=== PATIENT | male | born 1950 | race Caucasian/White ===

== ENCOUNTER 2016-12-02 22:58 | Inpatient (IN) | payer MEDICARE ==
[2016-12-02] MEDS ORDERED: FUROSEMIDE 40 MG/4 ML VIAL IVP ONE (23:24)
--- NOTE | 2016-12-02 23:28 | ED Physician Documentation ---
Chest Pain - HISTORIAN Historian: patient, other (grandchildren) - HPI Chief Complaint: Chest Pain Onset: other (patient cannot pin point time) Timing: still present Last known Well Date: 12/03/16 Last Known Well Time: 20:00 Context: rest Chest Pain Radiation: no radiation Chest Pain Signs/Symptoms: denies: nausea, vomiting Worsened By: nothing Relieved By: nothing Further Comments: yes (66 year old male patient presents with complaints of SOB and CP, patient is a very poor historian, old records reviewed. Unsure of last INR, states he has taken all of his medications. Is on 3L NC at home. Son states he put patient to bed, was called into his room and patient c/o chest pain and SOB.) - ROS CONST: recent illness (CHF admission in Nov 2016) - PAST HX [place] risk factors: hypertension, diabetes Type 2, hyperlipidemia, cardiac disease , angina, CHF, A-Fib Neuro deficit: CVA Surgeries/Procedures: other (craniotomy, right nephrectomy) Allergies/Adverse Reactions: Allergies Allergy/AdvReac Type Severity Reaction Status Date / Time Penicillins Allergy Intermediate Rash Verified 12/02/16 23:32 Home Medications: Ambulatory Orders Medication Instructions Recorded Acetaminophen with Codeine 1 tab PO Q6 PRN 11/15/16 [Tylenol with Codeine] Atorvastatin Calcium [Lipitor] 80 mg PO HS 11/15/16 Carvedilol [Coreg] 6.25 mg PO BS 11/15/16 Clopidogrel Bisulfate [Plavix] 75 mg PO QD 11/15/16 Furosemide [Lasix] 40 mg PO DAILY 11/15/16 Gabapentin [Neurontin] 300 mg PO TID 11/15/16 Hum Insulin NPH/Reg Insulin Hm 35 unit SQ BID 11/15/16 [Novolin 70-30 [place]] Ipratropium/Albuterol Sulfate 1 puff IH QID 11/15/16 [Duoneb] Isosorbide Mononitrate [Imdur] 30 mg PO DAILY 11/15/16 Nitroglycerin [Nitroquick] 0.4 mg SL Q5M PRN 11/15/16 Potassium Chloride [Klor-Con M20] 20 meq PO DAILY 11/15/16 Umeclidinium [place] [Incruse 62.5 mcg IH D 11/15/16 Ellipta] Warfarin Sodium [Coumadin] 7.5 mg PO 18 11/15/16 - SOCIAL HX Smoking History: quit greater than 1 year Alcohol Use: none Drug Use: none - FAMILY HX Family HX: denies: none - VITAL SIGNS Vital Signs: Vital Signs Temp Pulse Resp BP Pulse Ox 146/68 11/15/16 10:00 - REVIEWED ASSESSMENTS Nursing Assessment Reviewed: Yes Vitals Reviewed: Yes Progress - Progress Progress: Family at bedside; son is primary patient care technician Last Echo 10/15/2016 EF 55-60% INR 1.1 - patient states he is taking his warfarin Son states patient missed his coumadin dose yesterday because they went to [place]. Reviewed lab result with patient and son, offered transer to agricultural research director, admission at [facility] for rule out [place] and diuretics. Family and patient chose admission at [facility]. Call to Dr Cline, patient accepted for admission. Patient was followed by Dr Orourke last admission, family states Dr Dumont is his PCP, agricultural research director Dr Haque. - EKG/XRAY/CT EKG: rhythm (afib, right BBB, rate 88) ED Results Lab/Radiology - Radiology Radiology Impressions: Portable chest History: Dyspnea Findings: Exam is limited by obesity. There is no definite confluent infiltrate or pleural effusion. Left pleural thickening likely represents subpleural fat deposition. Heart size is upper normal. Impression: Negative limited exam except for probable left subpleural fat deposition. - Orders Orders: ED Orders Category Date Time Status Continuous EKG monitoring Q30M Care 12/02/16 23:21 Ordered Continuous Pulse Oximetry Q30M Care 12/02/16 23:[address] Saline Lock/IV NOW Care 12/02/16 23:21 Ordered BNP [NT-proBNP] Stat Lab 12/02/16 Ordered CBC/PLATELET/DIFF Stat Lab 12/02/16 23:20 Ordered CMP Stat Lab 12/02/16 23:20 Ordered PT-INR Stat Lab 12/02/16 Ordered TROPONIN I (cTnI) Stat Lab 12/02/16 23:21 Ordered Furosemide [Lasix] Med 12/02/16 23:24 Once 40 mg IVP NOW ONE EKG WITH COMPARISON Stat Ther 12/02/16 23:21 Ordered Chest Pain Physical Exam - EXAM General Appearance: mild distress Respiratory: no resp. distress, chest non-tender CVS: no murmur, no gallop, no friction rub, pulses full, pulses equal, irregularly irreg. rhythm, other (O2 at 3l nc - sat 96%) Abdomen: soft, no organomegaly, normal bowel sounds, no abdominal bruit, no distension Skin: normal color, warm/dry, NR, INT, DR Extremities: non-tender, normal range of motion, no evidence of injury, edema (3 +) Neuro: oriented X3, CN's nml as tested, sensation nml, mood/affect nml, other ( generalized weaknes) Discharge Clincal Impression: Noncompliance w/medication treatment due to intermit use of medication CHF (congestive heart failure) Qualifiers: Congestive heart failure type: unspecified congestive heart failure type Congestive heart failure chronicity: acute on chronic Qualified Code(s): I50.9 - Heart failure, unspecified Dyspnea Qualifiers: Dyspnea type: dyspnea on exertion Qualified Code(s): R06.09 - Other forms of dyspnea Morbid obesity Qualifiers: Obesity type: unspecified obesity type Qualified Code(s): E66.01 - Morbid ( severe) obesity due to excess calories Home Medications: Ambulatory Orders Acetaminophen with Codeine [Tylenol with Codeine] 1 tab PO Q6 PRN 11/15/16 Atorvastatin Calcium [Lipitor] 80 mg PO HS 11/15/16 Carvedilol [Coreg] 6.25 mg PO BS 11/15/16 Clopidogrel Bisulfate [Plavix] 75 mg PO QD 11/15/16 Furosemide [Lasix] 40 mg PO DAILY 11/15/16 Gabapentin [Neurontin] 300 mg PO TID 11/15/16 Hum Insulin NPH/Reg Insulin Hm [Novolin 70-30 [place]] 35 unit SQ BID 11/15/16 Ipratropium/Albuterol Sulfate [Duoneb] 1 puff IH QID 11/15/16 Isosorbide Mononitrate [Imdur] 30 mg PO DAILY 11/15/16 Nitroglycerin [Nitroquick] 0.4 mg SL Q5M PRN 11/15/16 Potassium Chloride [Klor-Con M20] 20 meq PO DAILY 11/15/16 Umeclidinium [place] [Incruse Ellipta] 62.5 mcg IH D 11/15/16 Warfarin Sodium [Coumadin] 7.5 mg PO 18 11/15/16 Condition: Stable Disposition: ADMITTED INPATIENT Decision to Admit: NO Decision Time: 00:35
[2016-12-02 23:52] LABS: MEAN CORPUSCULAR HEMOGLOBIN 30.3 pg (28.0-34.0)
[2016-12-03 00:05] LABS: eGFR (African) > 60; eGFR (Non-African) > 60
[2016-12-03] MEDS ORDERED: LEVALBUTEROL HCL 1.25 MG/3 ML AMPUL.NEB NEB PRN (00:43)
[2016-12-03] MEDS ORDERED: ACETAMINOPHEN 325 MG TABLET PO PRN (00:50)
[2016-12-03] MEDS ORDERED: ACETAMINOPHEN 325 MG TABLET PO ONE (00:51)
[2016-12-03] MEDS ORDERED: CLOPIDOGREL BISULFATE 75 MG TABLET ONE (01:23)
[2016-12-03] MEDS: CLOPIDOGREL BISULFATE 75 MG TABLET PO SCH (01:25)
[2016-12-03 02:20] VITALS: BMI 35.2
[2016-12-03] MEDS ORDERED: SALINE FLUSH 10 ML DISP.SYRIN IVF ONE ×2 (03:40→17:25)
[2016-12-03] MEDS ORDERED: WARFARIN SODIUM 5 MG TABLET PO ONE (03:41)
[2016-12-03] MEDS ORDERED: CARVEDILOL 12.5 MG TABLET PO ONE (03:41)
[2016-12-03] MEDS ORDERED: FUROSEMIDE 20 MG/2 ML VIAL ONE ×2 (03:42→17:27)
[2016-12-03] MEDS ORDERED: GABAPENTIN 100 MG CAPSULE ONE ×2 (03:42→12:10)
[2016-12-03] MEDS ORDERED: INSULIN NPH/REG 100 UNIT/ML 3ML VIAL SQ ONE (03:42)
[2016-12-03 06:53] LABS: BASOPHILS % 0.4 (0.0-1.5); EOSINOPHILS % 12.1 % (0.0-6.8); MEAN CORPUSCULAR HEMOGLOBIN 30.8 pg (28.0-34.0); MONOCYTES # 0.5 # k/uL (0.0-0.9); MONOCYTES % 7.2 % (0.0-11.0)
[2016-12-03 07:09] LABS: eGFR (African) > 60; eGFR (Non-African) > 60
--- NOTE | 2016-12-03 07:14 | Diagnostic Imaging Report ---
~ [facility] [address] [facility].[address] [address] ~ ~ ~ ~ Report Submission Date: Dec 02, 2016 11:56:35 PM RECEPTIONIST DOCTOR'S OFFICE Patient ~ Study Name: DEUCE BROOKS ~ Date: Dec 02, 2016 11:41:39 PM RECEPTIONIST DOCTOR'S OFFICE ~ Modality Type: CR Gender: M ~ Description: CHEST : 49 ~ Institution: [facility] Physician: JOCELYN VILLALOBOS ~ ~ ~ ~ Portable chest History: Dyspnea Findings: Exam is limited by obesity. There is no definite confluent infiltrate or pleural effusion. Left pleural thickening likely represents subpleural fat deposition. Heart size is upper normal. Impression: Negative limited exam except for probable left subpleural fat deposition. ~ Electronically signed on Dec 02, 2016 11:56:35 PM RECEPTIONIST DOCTOR'S OFFICE by: Vargas BEE
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
[2016-12-03] MEDS ORDERED: REG INSULIN SQ SCH (09:00)
[2016-12-03] MEDS ORDERED: HUM INSULIN NPH SQ SCH (09:00)
[2016-12-03] MEDS: INSULIN NPH/REG 100 UNIT/ML 3ML VIAL SQ SCH ×2 (09:00→21:54)
[2016-12-03] MEDS ORDERED: ENOXAPARIN SODIUM 60 MG/0.6 ML DISP.SYRIN SQ ONE ×2 (09:02→17:26)
[2016-12-03] MEDS: ISOSORBIDE MONONITRATE 30 MG TAB.ER.24H PO SCH (09:08)
[2016-12-03] MEDS: FUROSEMIDE 40 MG/4 ML VIAL IVP SCH ×2 (09:09→21:25)
[2016-12-03] MEDS: CARVEDILOL 6.25 MG TABLET PO SCH ×2 (09:09→18:04)
[2016-12-03] MEDS: POTASSIUM CHLORIDE 20 MEQ TABLET.ER PO SCH ×2 (09:10→21:54)
[2016-12-03] MEDS: ENOXAPARIN SODIUM 120 MG/0.8 ML DISP.SYRIN SQ SCH (09:11)
[2016-12-03] MEDS: GABAPENTIN 300 MG CAPSULE PO SCH ×3 (09:12→18:04)
[2016-12-03] MEDS: SALINE FLUSH 10 ML DISP.SYRIN IV SCH ×2 (09:12→21:55)
[2016-12-03] MEDS: IPRATROPIUM/ALBUTEROL SULFATE 3 ML AMPUL.NEB NEB SCH ×4 (09:18→21:24)
[2016-12-03] MEDS: WARFARIN SODIUM 2.5 MG TABLET PO SCH (09:25)
[2016-12-03] MEDS ORDERED: WARFARIN SODIUM 2.5 MG TABLET PO SCH (18:00)
[2016-12-03] MEDS ORDERED: ATORVASTATIN CALCIUM 80 MG TABLET PO SCH (21:00)
[2016-12-04] MEDS: CLOPIDOGREL BISULFATE 75 MG TABLET PO SCH (02:01)
[2016-12-04] MEDS ORDERED: WARFARIN SODIUM 5 MG TABLET PO ONE (04:42)
[2016-12-04 07:25] LABS: BASOPHILS % 0.6 (0.0-1.5); EOSINOPHILS % 9.8 % (0.0-6.8); LYMPHOCYTES # 1.4 # k/uL (0.6-4.0); MEAN CORPUSCULAR HEMOGLOBIN 31.3 pg (28.0-34.0); MONOCYTES # 0.8 # k/uL (0.0-0.9); MONOCYTES % 12.4 % (0.0-11.0); NEUTROPHILS # 3.3 # k/uL (1.4-7.7)
[2016-12-04 07:34] LABS: eGFR (African) > 60; eGFR (Non-African) > 60
[2016-12-04] MEDS ORDERED: SALINE FLUSH 10 ML DISP.SYRIN IVF SCH (09:00)
[2016-12-04] MEDS ORDERED: CLOPIDOGREL BISULFATE 75 MG TABLET PO SCH (09:00)
[2016-12-04] MEDS: IPRATROPIUM/ALBUTEROL SULFATE 3 ML AMPUL.NEB NEB SCH (09:21)
[2016-12-04] MEDS: CARVEDILOL 6.25 MG TABLET PO SCH (09:31)
[2016-12-04] MEDS: WARFARIN SODIUM 2.5 MG TABLET PO SCH (09:31)
[2016-12-04] MEDS: INSULIN NPH/REG 100 UNIT/ML 3ML VIAL SQ SCH (09:31)
[2016-12-04] MEDS: FUROSEMIDE 40 MG/4 ML VIAL IVP SCH (09:32)
[2016-12-04] MEDS: ISOSORBIDE MONONITRATE 30 MG TAB.ER.24H PO SCH (09:32)
[2016-12-04] MEDS: ENOXAPARIN SODIUM 120 MG/0.8 ML DISP.SYRIN SQ SCH (09:32)
[2016-12-04] MEDS: POTASSIUM CHLORIDE 20 MEQ TABLET.ER PO SCH (09:32)
[2016-12-04] MEDS: GABAPENTIN 300 MG CAPSULE PO SCH (09:32)
[2016-12-04 09:59] VITALS: BP 135/60
--- NOTE | 2016-12-04 10:45 | Discharge Summary ---
DATE OF ADMISSION: December 03, 2016. DATE OF DISCHARGE: December 04, 2016. DIAGNOSES ON THIS HOSPITALIZATION: 1. Chest pain. 2. Congestive heart failure. 3. Chronic obstructive pulmonary disease (COPD). 4. Subtherapeutic INR. 5. Dyspnea. 6. Morbid obesity. 7. Diabetes mellitus type 2, uncontrolled. SUMMARIZATION OF ADMISSION HISTORY AND PHYSICAL: This is a 66-year-old male in remarkably poor health who presented to the emergency room on the day of admission with left lower chest pain. Because of his history of congestive heart failure and history of coronary disease, he was admitted for serial cardiac enzymes and an EKG. HOSPITAL COURSE: He was admitted and all serial cardiac enzymes were negative. He was discharged on all of his continued medications as prior to admission. DISCHARGE INSTRUCTIONS: Follow up with Dr. Palma next week. Call or return for any resumption of his chest pain. CRISTAL
[2016-12-04] MEDS ORDERED: ENOXAPARIN SODIUM 120 MG/0.8 ML DISP.SYRIN SQ SCH (21:00)
== END 2016-12-04 10:45 | disposition home or self-care (01) | DRG 293 ==
LOC: ED 22:58 → SOUTH 12-03 00:41
PROVIDERS: ADMIT Family Medicine; ATTEND Family Medicine
DX: I50.9 Heart failure, unspecified (principal); J44.9 Chronic obstructive pulmonary disease, unspecified; Z79.01 Long term (current) use of anticoagulants; E11.65 Type 2 diabetes mellitus with hyperglycemia; E66.01 Morbid (severe) obesity due to excess calories
CPT/HCPCS: 36415; 71010; 80048; 80053; 83880; 84484; 85025; 85610; 93005; 94640; 94760; A9270; J1650; J1815; J1940; 99222; 99238; 99283; 99284; S1016

== ENCOUNTER 2016-12-11 12:43 | Outpatient (CLI) | payer MEDICARE | END 2016-12-11 12:44 | LOC: CARD 12:43 | PROVIDERS: ATTEND Internal Medicine Cardiovascular Disease | DX: I50.9 Heart failure, unspecified (principal) | CPT/HCPCS: G0463 ==

== ENCOUNTER 2016-12-15 18:16 | Emergency (ER) | payer MEDICARE ==
[2016-12-15] MEDS ORDERED: MORPHINE SULFATE 4 MG/ML DISP.SYRIN IVP ONE (18:27)
[2016-12-15 18:41] LABS: BASOPHILS % 0.8 (0.0-1.5); LYMPHOCYTES # 1.9 # k/uL (0.6-4.0); MEAN CORPUSCULAR HEMOGLOBIN 31.3 pg (28.0-34.0); MONOCYTES # 0.6 # k/uL (0.0-0.9); MONOCYTES % 7.2 % (0.0-11.0); NEUTROPHILS # 4.5 # k/uL (1.4-7.7)
[2016-12-15 18:57] LABS: eGFR (African) > 60; eGFR (Non-African) > 60
--- NOTE | 2016-12-15 19:01 | Diagnostic Imaging Report ---
[facility] [address] [facility].[address] [address] ~ ~ ~ ~ Report Submission Date: Dec 15, 2016 6:58:40 PM GEAR NICKER Patient ~ Study Name: DEUCE BROOKS ~ Date: Dec 15, 2016 6:47:54 PM GEAR NICKER ~ Modality Type: CR Gender: M ~ Description: CHEST : 48 ~ Institution: [facility] Physician: JOCELYN VILLALOBOS ~ ~ ~ ~ Chest -one view CLINICAL HISTORY: ~ Difficulty breathing. ~Hypoxemia. FINDINGS: ~ Examination of the chest in single portable AP view 12/15/2016 1847 hr with comparison to examination of 12/02/2016 demonstrates hypoventilation. ~The cardiac silhouette is enlarged and the aorta is atherosclerotic. ~Retrocardiac region is dense although this is likely related to technique and the patient's size. IMPRESSION: ~ Hypoventilation. Cardiomegaly and aortic atherosclerosis. ~ Electronically signed on Dec 15, 2016 6:58:40 PM GEAR NICKER by: Jim BEE
[2016-12-15] MEDS ORDERED: FUROSEMIDE 40 MG/4 ML VIAL IVP ONE (19:23)
--- NOTE | 2016-12-15 19:29 | ED Physician Documentation ---
General Adult - HISTORIAN Historian: patient, spouse, child - HPI Stated Complaint: Chest/Back Pain Chief Complaint: General Adult Further Comments: yes (66 year old male patient brought in by his son for complaints of SOB and chest pain. Son states patient began crying about his chest wall pain about 1 hour ago. No OTC or prescription medications used MUD LOGGER. Patient crying and tachypenic on arrival.) - ROS CONST: recent illness EYES/ENT: none CVS/RESP: chest pain, shortness of breath, cough GI/: none MS/SKIN/LYMPH: leg swelling, ankle swelling NEURO/PSYCH: difficulty walking. denies: headache, fainting, dizziness, tingling, numbness, difficulty with speech - PAST HX Past History: AMI (x2), hypertension Other History: diabetes Type 2, other (CVA, O2 use, COPD, IDDM, HDL, Neuropathy , morbid obesity) Surgeries/Procedures: cholecystectomy, other (right nephrectomy) Immunizations: UTD Allergies/Adverse Reactions: Allergies Allergy/AdvReac Type Severity Reaction Status Date / Time Penicillins Allergy Intermediate Rash Verified 12/15/16 18:40 Home Medications: Ambulatory Orders Medication Instructions Recorded Acetaminophen with Codeine 1 tab PO Q6 PRN 11/15/16 [Tylenol with Codeine] Atorvastatin Calcium [Lipitor] 80 mg PO HS 11/15/16 Carvedilol [Coreg] 6.25 mg PO BS 11/15/16 Clopidogrel Bisulfate [Plavix] 75 mg PO QD 11/15/16 Furosemide [Lasix] 40 mg PO DAILY 11/15/16 Gabapentin [Neurontin] 300 mg PO TID 11/15/16 Hum Insulin NPH/Reg Insulin Hm 35 unit SQ BID 11/15/16 [Novolin 70-30 [place]] Ipratropium/Albuterol Sulfate 1 puff IH QID 11/15/16 [Duoneb] Isosorbide Mononitrate [Imdur] 30 mg PO DAILY 11/15/16 Nitroglycerin [Nitroquick] 0.4 mg SL Q5M PRN 11/15/16 Potassium Chloride [Klor-Con M20] 20 meq PO DAILY 11/15/[address] Umeclidin[address] [place] [Incruse 62.5 mcg IH D 11/15/16 Ellipta] Warfarin Sodium [Coumadin] 7.5 mg PO 18 11/15/16 - SOCIAL HX Smoking History: non-smoker - FAMILY HX Family History: No - VITAL SIGNS Vital Signs: Vital Signs Temp Pulse Resp BP Pulse Ox 98.1 F 68 26 H 137/51 90 L 12/15/16 18:20 12/15/16 18:27 12/15/16 18:20 12/15/16 18:20 12/15/16 18:20 - REVIEWED ASSESSMENTS Nursing Assessment Reviewed: Yes Vitals Reviewed: Yes Progress - Progress Progress: Old records reviewed, inpatient admission and Dr Haque's notes. Patient stopped crying after Morphine. 1924 Family reports the Tylenol #3 is not helping the patient's pain at home. Recommended increasing dose or following up with Dr Orourke for pain management. BNP 2405, old lab reviewed. Patient ranges from 0650-8931. Will given additional dose of lasix in Er. ED Results Lab/Radiology - Lab Results Lab Results: Lab Results 12/15/16 12/15/16 12/15/16 18:34 18:27 18:27 WBC 7.80 K/ul K/ul (4.00-12.00) RBC 4.64 M/ul M/ul (3.90-5.20) Hgb 14.5 g/dL g/dL (12.0-18.0) Hct 47.1 % % (37.0-53.0) MCV 101.5 fl H fl (80.0-100.0) MCH 31.3 pg pg (28.0-34.0) MCHC 30.8 g/dL g/dL (30.0-36.0) RDW 12.4 % % (11.3-14.3) Plt Count 199 K/mm3 K/mm3 (130-400) Neut % (Auto) 58.2 % % (39.0-79.0) Lymph % (Auto) 24.3 % % (16.0-50.0) [place] % (Auto) 7.2 % % (0.0-11.0) Eos % (Auto) 8.0 % H % (0.0-6.8) Baso % (Auto) 0.8 (0.0-1.5) Neut # 4.5 # k/uL # k/uL (1.4-7.7) Lymph # 1.9 # k/uL # k/uL (0.6-4.0) [place] # 0.6 # k/uL # k/uL (0.0-0.9) Eos # 0.6 # k/uL # k/uL (0.0-0.6) Baso # 0.1 # k/uL # k/uL (0.0-0.5) Reactive Lymphs % 1.6 % % (0.0-5.0) Reactive Lymphs # 0.1 # k/uL # k/uL (0.0-0.8) Sodium 134 mmol/L L mmol/L (136-145) Potassium 4.7 mmol/L mmol/L (3.5-5.0) Chloride 94 mmol/L L mmol/L (98-110) Carbon Dioxide 41 mmol/L H mmol/L (20-32) BUN 11 mg/dL mg/dL (10-26) Creatinine 0.8 mg/dL mg/dL (0.4-1.5) Estimated Creat Clear 177 Est GFR ( Amer) > 60 (60 - ) Est GFR (Non-Af Amer) > 60 (60 - ) Glucose 345 mg/dL H mg/dL (70-99) Calcium 9.9 mg/dL mg/dL (8.5-10.5) Total Bilirubin 0.3 mg/dL mg/dL (0.2-1.2) AST 20 U/L U/L (0-41) ALT 20 U/L U/L (0-45) Alkaline Phosphatase 106 U/L U/L (46-116) Troponin I 0.03 ng/mL ng/mL (0.00-0.06) NT-Pro-B Natriuret Pep 2405.7 pg/mL H pg/mL (15.0-125.0) Total Protein 6.6 g/dL g/dL (6.0-8.5) Albumin 4.2 g/dL g/dL (3.0-5.5) - Orders Orders: ED Orders Category Date Time Status Continuous EKG monitoring Q30M Care 12/15/16 18:[address] Saline Lock/IV NOW Care 12/15/16 18:27 Active CHEST 1 VIEW [RAD] Stat Exams 12/15/16 18:28 Completed BNP [NT-proBNP] Stat Lab 12/15/16 18:34 Completed CBC/PLATELET/DIFF Stat Lab 12/15/16 18:27 Completed CMP Stat Lab 12/15/16 18:27 Completed TROPONIN I (cTnI) Stat Lab 12/15/16 18:34 Completed Furosemide [Lasix] Med 12/15/16 19:23 Discontinued 40 mg IVP NOW ONE Morphine Sulfate [DepoDUR] Med 12/15/16 18:27 Discontinued 4 mg IVP NOW ONE Oxygen Daily Oxygen 12/15/16 18:30 Ordered General Adult Physical Exam - PHYSICAL EXAM GENERAL APPEARANCE: anxious, crying EENT: eye inspection normal, ENT inspection normal, pharynx normal, no signs of dehydration, VALERY, no nystagmus, TM's nml RESPIRATORY: no resp distress, chest non-tender, other (poor air movemennt) CVS: reg rate & rhythm, heart sounds normal, equal pulses, no murmur, no gallop , PMI nml, no JVD, no friction rub, 24 ABDOMEN: no organomegaly, normal bowel sounds, no abdominal bruit, no distension , distended (protuberant, morbid obesity) SKIN: normal color, warm/dry, NR, INT, PAL, DR EXTREMITIES: non-tender, normal range of motion, no evidence of injury, edema (3 + bilateral ankles) NEURO: oriented X3, motor nml (at his baseline), sensation nml (at his baseline) , mood/affect nml (anxious, crying), other (very poor personal hygiene) Discharge Clincal Impression: Non-cardiac chest pain CHF (congestive heart failure) Qualifiers: Congestive heart failure type: unspecified congestive heart failure type Congestive heart failure chronicity: chronic Qualified Code(s): I50.9 - Heart failure, unspecified Back pain Qualifiers: Back pain location: low back pain Chronicity: acute Back pain laterality: unspecified Sciatica presence: without sciatica Qualified Code(s): M54.5 - Low back pain Additional Instructions: Follow up with Dr Orourke next week regarding pain management Continue all medications as prescribed You may take 1-2 tabs of Tylenol #3 every 6 hours as needed for pain. Home Medications: Ambulatory Orders Acetaminophen with Codeine [Tylenol with Codeine] 1 tab PO Q6 PRN 11/15/16 Atorvastatin Calcium [Lipitor] 80 mg PO HS 11/15/16 Carvedilol [Coreg] 6.25 mg PO BS 11/15/16 Clopidogrel Bisulfate [Plavix] 75 mg PO QD 11/15/16 Furosemide [Lasix] 40 mg PO DAILY 11/15/16 Gabapentin [Neurontin] 300 mg PO TID 11/15/16 Hum Insulin NPH/Reg Insulin Hm [Novolin 70-30 [place]] 35 unit SQ BID 11/15/16 Ipratropium/Albuterol Sulfate [Duoneb] 1 puff IH QID 11/15/16 Isosorbide Mononitrate [Imdur] 30 mg PO DAILY 11/15/16 Nitroglycerin [Nitroquick] 0.4 mg SL Q5M PRN 11/15/16 Potassium Chloride [Klor-Con M20] 20 meq PO DAILY 11/15/[address]meclidin[address] [place] [Incruse Ellipta] 62.5 mcg IH D 11/15/16 Warfarin Sodium [Coumadin] 7.5 mg PO 18 11/15/16 Condition: Stable Disposition: 01 HOME, SELF-CARE Decision to Admit: NO Decision Time: 19:35
[2016-12-15 20:35] VITALS: BP 154/58
== END 2016-12-15 19:50 | disposition home or self-care (01) ==
LOC: ED 18:16
DX: R07.9 Chest pain, unspecified (principal); I50.9 Heart failure, unspecified; M54.5 Low back pain
CPT/HCPCS: 71010; 80053; 83880; 84484; 85025; J1940; J2270; 96374; 96375; 99283; 99284; S1016

== ENCOUNTER 2016-12-29 13:34 | Emergency (ER) | payer MEDICARE, OTHER ==
--- NOTE | 2016-12-29 13:53 | ED Physician Documentation ---
General Adult - HISTORIAN Historian: patient - HPI Chief Complaint: General Adult Onset: days ago (7 days) Timing: still present Modifying Factors: if patient relaxes chest gets better Context: has been having Further Comments: yes (pain and swelling in both legs for 1-2 weeks. Has not been taking in more salt. Has a history of CHF. Having some mild chest pain, worse with deep breath, goes away if he relaxes. Son states that the main reason patient is being seen today is for the swelling and to evaluate his legs. ) - ROS CONST: no problems. denies: fever, chills CVS/RESP: chest pain, shortness of breath MS/SKIN/LYMPH: joint pain (knees), leg swelling, rash (mild erythem to legs, no wrmth noted.). denies: calf pain, neck pain - PAST HX Past History: COPD, CHF, other (CAD) Other History: diabetes Type 2 Allergies/Adverse Reactions: Allergies Allergy/AdvReac Type Severity Reaction Status Date / Time Penicillins Allergy Intermediate Rash Verified 12/15/16 18:40 Home Medications: Ambulatory Orders Medication Instructions Recorded Acetaminophen with Codeine 1 tab PO Q6 PRN 11/15/16 [Tylenol with Codeine] Atorvastatin Calcium [Lipitor] 80 mg PO HS 11/15/16 Carvedilol [Coreg] 6.25 mg PO BS 11/15/16 Clopidogrel Bisulfate [Plavix] 75 mg PO QD 11/15/16 Furosemide [Lasix] 40 mg PO DAILY 11/15/16 Gabapentin [Neurontin] 300 mg PO TID 11/15/16 Hum Insulin NPH/Reg Insulin Hm 35 unit SQ BID 11/15/16 [Novolin 70-30 [place]] Ipratropium/Albuterol Sulfate 1 puff IH QID 11/15/16 [Duoneb] Isosorbide Mononitrate [Imdur] 30 mg PO DAILY 11/15/16 Nitroglycerin [Nitroquick] 0.4 mg SL Q5M PRN 11/15/16 Potassium Chloride [Klor-Con M20] 20 meq PO DAILY 11/15/16 Umeclidinium [place] [Incruse 62.5 mcg IH D 11/15/16 Ellipta] Warfarin Sodium [Coumadin] 7.5 mg PO 18 11/15/16 - SOCIAL HX Smoking History: non-smoker Alcohol Use: none Drug Use: none - FAMILY HX Family History: No - VITAL SIGNS Vital Signs: Vital Signs Temp Pulse Resp BP Pulse Ox 154/58 12/15/16 19:55 - REVIEWED ASSESSMENTS Nursing Assessment Reviewed: Yes Vitals Reviewed: Yes ED Results Lab/Radiology - Radiology Radiology Impressions: CXRcardiomegally, no acute findings General Adult Physical Exam - PHYSICAL EXAM GENERAL APPEARANCE: mild distress EENT: ENT inspection normal NECK: normal inspection, supple RESPIRATORY: no resp distress, breath sounds normal, rhonchi (few scatered). No : wheezes, rales CVS: reg rate & rhythm, heart sounds normal, equal pulses, no murmur, no gallop ABDOMEN: soft (morbid obesity), no organomegaly, normal bowel sounds, no abdominal bruit, no distension, non-tender BACK: normal inspection, no CVA tenderness SKIN: warm/dry, other (patient appeared to have some escoriated lesion to the left pretibial area) EXTREMITIES: other (tenderness with ROM of the knees) NEURO: oriented X3, mood/affect nml, cognition normal Discharge Clincal Impression: Pedal edema Chest pain Qualifiers: Chest pain type: chest pain on breathing Qualified Code(s): R07.1 - Chest pain on breathing Referrals: Charan Palma [Primary Care Provider] - 2 Days Additional Instructions: Continue to wrap legs with CLAUDIA wrap as you have been doing. Try to keep your legs elevated as much as possible. Watch the salt in take in your diet. Use a moisturizing cream to your legs to prevent dryness. Home Medications: Ambulatory Orders Acetaminophen with Codeine [Tylenol with Codeine] 1 tab PO Q6 PRN 11/15/16 Atorvastatin Calcium [Lipitor] 80 mg PO HS 11/15/16 Carvedilol [Coreg] 6.25 mg PO BS 11/15/16 Clopidogrel Bisulfate [Plavix] 75 mg PO QD 11/15/16 Furosemide [Lasix] 40 mg PO DAILY 11/15/16 Gabapentin [Neurontin] 300 mg PO TID 11/15/16 Hum Insulin NPH/Reg Insulin Hm [Novolin 70-30 [place]] 35 unit SQ BID 11/15/16 Ipratropium/Albuterol Sulfate [Duoneb] 1 puff IH QID 11/15/16 Isosorbide Mononitrate [Imdur] 30 mg PO DAILY 11/15/16 Nitroglycerin [Nitroquick] 0.4 mg SL Q5M PRN 11/15/16 Potassium Chloride [Klor-Con M20] 20 meq PO DAILY 11/15/16 Umeclidinium [place] [Incruse Ellipta] 62.5 mcg IH D 11/15/16 Warfarin Sodium [Coumadin] 7.5 mg PO 18 11/15/16 Condition: Fair Decision to Admit: NO Date of Decison to Admit: 12/29/16 Decision Time: 15:06
[2016-12-29 15:09] LABS: BASOPHILS % 0.6 (0.0-1.5); EOSINOPHILS % 5.7 % (0.0-6.8); MEAN CORPUSCULAR HEMOGLOBIN 31.2 pg (28.0-34.0); MONOCYTES # 0.5 # k/uL (0.0-0.9); NEUTROPHILS # 5.7 # k/uL (1.4-7.7)
[2016-12-29 15:10] LABS: eGFR (African) > 60; eGFR (Non-African) > 60
[2016-12-29 15:35] VITALS: BP 128/68
--- NOTE | 2016-12-29 17:35 | Diagnostic Imaging Report ---
[facility] [address] [facility].[address] [address] ~ ~ ~ ~ Report Submission Date: Dec 29, 2016 2:52:02 PM DIETARY MANAGER Patient ~ Study Name: DEUCE BROOKS ~ Date: Dec 29, 2016 2:25:44 PM DIETARY MANAGER ~ Modality Type: CR Gender: M ~ Description: CHEST : 49 ~ Institution: [facility] Physician: TUYET RIVERO MD ~ ~ ~ ~ Chest -two views CLINICAL HISTORY: ~ Chest pain for 3 days. FINDINGS: ~ Examination of the chest in AP and lateral views with comparison to examination 12/15/2016 demonstrates lungs to be hypoventilated. ~Retrocardiac region is dense although this is likely related to technique. ~Cardiac silhouette is enlarged and the aorta is atherosclerotic. IMPRESSION: ~ Cardiomegaly and aortic atherosclerosis. ~ Hypoventilation. ~ Obesity. ~ Electronically signed on Dec 29, 2016 2:52:02 PM DIETARY MANAGER by: Jim BEE
== END 2016-12-29 15:32 ==
LOC: ED 13:34
DX: R60.0 Localized edema (principal); R07.1 Chest pain on breathing; I50.9 Heart failure, unspecified; J44.9 Chronic obstructive pulmonary disease, unspecified; I25.10 Atherosclerotic heart disease of native coronary artery without angina pectoris; E11.9 Type 2 diabetes mellitus without complications
CPT/HCPCS: 71020; 80053; 84484; 85025; 99283; 99284

== ENCOUNTER 2016-12-30 21:25 | Emergency (ER) | payer MEDICARE, OTHER ==
[2016-12-30 22:03] LABS: BASOPHILS % 0.6 (0.0-1.5); EOSINOPHILS % 2.6 % (0.0-6.8); LYMPHOCYTES # 0.8 # k/uL (0.6-4.0); MEAN CORPUSCULAR HEMOGLOBIN 31.4 pg (28.0-34.0); MONOCYTES # 0.6 # k/uL (0.0-0.9); MONOCYTES % 8.4 % (0.0-11.0); NEUTROPHILS # 5.4 # k/uL (1.4-7.7)
[2016-12-30 22:17] LABS: eGFR (African) > 60; eGFR (Non-African) > 60
--- NOTE | 2016-12-30 22:25 | ED Physician Documentation ---
General Adult - HISTORIAN Historian: patient, spouse - HPI Stated Complaint: n/v pain between shoulder blades Chief Complaint: General Adult Additional Information: Pain he was seen for yesterday, [facility], is worse today. Worse wit hdeep breath. Threw up once this evening when family gave him water. Decreased appetite. - ROS CONST: no problems CVS/RESP: cough NEURO/PSYCH: other (Non cazrdiac chest pain, Morbid obesity, Noncompliance with meds, ) - PAST HX Past History: COPD, CHF, other (IDDM) Allergies/Adverse Reactions: Allergies Allergy/AdvReac Type Severity Reaction Status Date / Time Penicillins Allergy Intermediate Rash Verified 12/30/16 21:40 Home Medications: Ambulatory Orders Medication Instructions Recorded Acetaminophen with Codeine 1 tab PO Q6 PRN 11/15/16 [Tylenol with Codeine] Atorvastatin Calcium [Lipitor] 80 mg PO HS 11/15/16 Carvedilol [Coreg] 6.25 mg PO BS 11/15/16 Clopidogrel Bisulfate [Plavix] 75 mg PO QD 11/15/16 Furosemide [Lasix] 40 mg PO DAILY 11/15/16 Gabapentin [Neurontin] 300 mg PO TID 11/15/16 Hum Insulin NPH/Reg Insulin Hm 35 unit SQ BID 11/15/16 [Novolin 70-30 [place]] Ipratropium/Albuterol Sulfate 1 puff IH QID 11/15/16 [Duoneb] Isosorbide Mononitrate [Imdur] 30 mg PO DAILY 11/15/16 Nitroglycerin [Nitroquick] 0.4 mg SL Q5M PRN 11/15/16 Potassium Chloride [Klor-Con M20] 20 meq PO DAILY 11/15/16 Umeclidinium [place] [Incruse 62.5 mcg IH D 11/15/16 Ellipta] Warfarin Sodium [Coumadin] 7.5 mg PO 18 11/15/16 - SOCIAL HX Smoking History: non-smoker - FAMILY HX Family History: No - VITAL SIGNS Vital Signs: Vital Signs Temp Pulse Resp BP Pulse Ox 98.7 F 82 26 H 145/64 93 12/30/16 21:26 12/30/16 21:26 12/30/16 21:26 12/30/16 21:26 12/30/16 21:26 - REVIEWED ASSESSMENTS Nursing Assessment Reviewed: Yes Vitals Reviewed: Yes Progress - Progress Progress: Portable chest History: Cough Findings: The exam is limited due to morbid obesity. The left lung base is partially obscured by soft tissues. Bibasilar and right upper lobe infiltrate or edema, cardiomegaly, and pulmonary vascular congestion are observed. Aortic calcification is noted. There has been no significant change since yesterday. Impression: Suspect congestive heart failure without change. Electronically signed on Dec 30, 2016 10:33:06 PM PARTY COORDINATOR by: Vargas Hammonds BNP 2400 on 12/15, now almost 4000. Hands edematous. Lower legs less edematous, but has been using tamela wraps. Insists he has been taking lasix, but family also says he has not been able to keep liquids down. 2300. accepted for admit to [facility] per Dr. Ramirez. ED Results Lab/Radiology - Orders Orders: ED Orders Category Date Time Status Place Saline Lock/IV Now Care 12/30/16 21:41 Active CHEST 1 VIEW [RAD] Stat Exams 12/30/16 Ordered BNP [NT-proBNP] Stat Lab 12/30/16 21:57 Received CBC/PLATELET/DIFF Routine Lab 12/30/16 21:58 Received CMP Routine Lab 12/30/16 21:58 Received TROPONIN I (cTnI) Stat Lab 12/30/16 Ordered URINALYSIS Routine Lab 12/30/16 Ordered General Adult Physical Exam - PHYSICAL EXAM GENERAL APPEARANCE: moderate distress (moans with each breath) EENT: eye inspection normal, no signs of dehydration, VALERY NECK: normal inspection, supple RESPIRATORY: rales (fine, corbin lower lobes) CVS: reg rate & rhythm, heart sounds normal RECTAL: deferred BACK: normal inspection SKIN: warm/dry EXTREMITIES: other (flexion contractures hips and knees) NEURO: CN's nml as tested, motor nml, sensation nml Discharge Clincal Impression: CHF (congestive heart failure) Qualifiers: Congestive heart failure type: unspecified congestive heart failure type Congestive heart failure chronicity: acute on chronic Qualified Code(s): I50.9 - Heart failure, unspecified Home Medications: Ambulatory Orders Acetaminophen with Codeine [Tylenol with Codeine] 1 tab PO Q6 PRN 11/15/16 Atorvastatin Calcium [Lipitor] 80 mg PO HS 11/15/16 Carvedilol [Coreg] 6.25 mg PO BS 11/15/16 Clopidogrel Bisulfate [Plavix] 75 mg PO QD 11/15/16 Furosemide [Lasix] 40 mg PO DAILY 11/15/16 Gabapentin [Neurontin] 300 mg PO TID 11/15/16 Hum Insulin NPH/Reg Insulin Hm [Novolin 70-30 [place]] 35 unit SQ BID 11/15/16 Ipratropium/Albuterol Sulfate [Duoneb] 1 puff IH QID 11/15/16 Isosorbide Mononitrate [Imdur] 30 mg PO DAILY 11/15/16 Nitroglycerin [Nitroquick] 0.4 mg SL Q5M PRN 11/15/16 Potassium Chloride [Klor-Con M20] 20 meq PO DAILY 11/15/16 Umeclidinium [place] [Incruse Ellipta] 62.5 mcg IH D 11/15/16 Warfarin Sodium [Coumadin] 7.5 mg PO 18 11/15/16 Condition: Fair Disposition: 02 XFER SHT-TRM HOSP Decision to Admit: NO Decision Time: 23:00
[2016-12-30] MEDS ORDERED: FUROSEMIDE 40 MG/4 ML VIAL IVP ONE (23:01)
[2016-12-30] MEDS ORDERED: KETOROLAC TROMETHAMINE 30 MG/1ML VIAL ONE (23:21)
[2016-12-30] MEDS ORDERED: KETOROLAC TROMETHAMINE 30 MG/1ML VIAL IVP ONE (23:21)
[2016-12-31 00:57] VITALS: BP 123/62
--- NOTE | 2016-12-31 05:52 | Diagnostic Imaging Report ---
Report Submission Date: Dec 30, 2016 10:33:06 PM MIGRATORY WORKER Patient ~ Study Name: DEUCE BROOKS ~ Date: Dec 30, 2016 10:09:32 PM MIGRATORY WORKER ~ Modality Type: CR Gender: M ~ Description: CHEST : 49 ~ Institution: [facility] Physician: MARCOS GOODMAN ~ ~ ~ ~ Portable chest History: Cough Findings: The exam is limited due to morbid obesity. The left lung base is partially obscured by soft tissues. Bibasilar and right upper lobe infiltrate or edema, cardiomegaly, and pulmonary vascular congestion are observed. Aortic calcification is noted. There has been no significant change since yesterday. Impression: Suspect congestive heart failure without change. ~ Electronically signed on Dec 30, 2016 10:33:06 PM MIGRATORY WORKER by: Vargas BEE
[2016-12-31 08:09] LABS: APPEARANCE,URINE CLEAR (CLEAR); COLOR,URINE YELLOW (YELLOW)
[2016-12-31 08:10] LABS: OCCULT BLOOD,URINE 1+ (NEGATIVE); PH URINE 5.5 (5.0 - 8.0)
== END 2016-12-31 00:10 | disposition short-term general hospital (02) ==
LOC: ED 21:25
DX: I50.9 Heart failure, unspecified (principal); J44.9 Chronic obstructive pulmonary disease, unspecified
CPT/HCPCS: 71010; 80053; 81002; 83880; 84484; 85025; J1885; J1940; 96374; 96375; 96376; 99283; 99284; S1016

== ENCOUNTER 2017-03-01 20:21 | Emergency (ER) | payer MEDICARE, OTHER ==
[2017-03-01] MEDS ORDERED: fentaNYL CITRATE/PF 100 MCG/ 2ML AMP IVP ONE ×2 (21:36→23:52)
[2017-03-01 22:24] LABS: BASOPHILS % 0.8 (0.0-1.5); LYMPHOCYTES # 1.6 # k/uL (0.6-4.0); MEAN CORPUSCULAR HEMOGLOBIN 31.3 pg (28.0-34.0); MONOCYTES # 0.4 # k/uL (0.0-0.9); MONOCYTES % 6.1 % (0.0-11.0); NEUTROPHILS # 4.1 # k/uL (1.4-7.7)
--- NOTE | 2017-03-01 22:30 | ED Physician Documentation ---
General Adult - HISTORIAN Historian: patient - HPI Chief Complaint: General Adult Timing: worse Further Comments: yes (66 year old male patient brought in by family with complaints of worsening bilateral leg pain, worsening edema and wounds on his bilateral lower legs. Family reports patient was seen by PCP today. Family cannot relieve patient's pain with home pain medications.) - ROS CONST: recent illness EYES/ENT: none CVS/RESP: shortness of breath, cough GI/: other (abdominal edema) MS/SKIN/LYMPH: leg swelling, leg pain (bilateral) NEURO/PSYCH: difficulty walking. denies: difficulty with speech - PAST HX Past History: COPD, CHF, hypertension, renal disease Other History: diabetes Type 2, other (neuropathy) Allergies/Adverse Reactions: Allergies Allergy/AdvReac Type Severity Reaction Status Date / Time Penicillins Allergy Intermediate Rash Verified 12/30/16 21:40 Home Medications: Ambulatory Orders Medication Instructions Recorded Acetaminophen with Codeine 1 tab PO Q6 PRN 11/15/16 [Tylenol with Codeine] Atorvastatin Calcium [Lipitor] 80 mg PO HS 11/15/16 Carvedilol [Coreg] 6.25 mg PO BS 11/15/16 Clopidogrel Bisulfate [Plavix] 75 mg PO QD 11/15/16 Furosemide [Lasix] 40 mg PO DAILY 11/15/16 Gabapentin [Neurontin] 300 mg PO TID 11/15/16 Hum Insulin NPH/Reg Insulin Hm 35 unit SQ BID 11/15/16 [Novolin 70-30 [place]] Ipratropium/Albuterol Sulfate 1 puff IH QID 11/15/16 [Duoneb] Isosorbide Mononitrate [Imdur] 30 mg PO DAILY 11/15/16 Nitroglycerin [Nitroquick] 0.4 mg SL Q5M PRN 11/15/16 Potassium Chloride [Klor-Con M20] 20 meq PO DAILY 11/15/16 Umeclidinium [place] [Incruse 62.5 mcg IH D 11/15/16 Ellipta] Warfarin Sodium [Coumadin] 7.5 mg PO 18 11/15/16 - SOCIAL HX Smoking History: non-smoker - FAMILY HX Family History: No - VITAL SIGNS Vital Signs: Vital Signs Temp Pulse Resp BP Pulse Ox 123/62 12/31/16 00:53 - REVIEWED ASSESSMENTS Nursing Assessment Reviewed: Yes Vitals Reviewed: Yes Progress - Progress Progress: Patient incontinent of urine, urine running into leg wounds. Will place ponce and give Lasix 40mg for BNP 2523.9 2310 Discussed wounds, CHF, patient's weakness and pain control with family. Recommended transfer to higher level of care for wound care consult and cardiology management. Family prefers [facility]. [address] Caballero, family medicine. 2340 Leg wound cleaned with hibiclens and water, covered with telfa and wrapped with kerlix. ED Results Lab/Radiology - Lab Results Lab Results: Lab Results 03/01/17 22:20 WBC 6.60 K/ul K/ul (4.00-12.00) RBC 4.61 M/ul M/ul (3.90-5.20) Hgb 14.4 g/dL g/dL (12.0-18.0) Hct 46.6 % % (37.0-53.0) MCV 101.1 fl H fl (80.0-100.0) MCH 31.3 pg pg (28.0-34.0) MCHC 31.0 g/dL g/dL (30.0-36.0) RDW 13.6 % % (11.3-14.3) Plt Count 254 K/mm3 K/mm3 (130-400) Neut % (Auto) 61.2 % % (39.0-79.0) Lymph % (Auto) 24.4 % % (16.0-50.0) [place] % (Auto) 6.1 % % (0.0-11.0) Eos % (Auto) 6.0 % % (0.0-6.8) Baso % (Auto) 0.8 (0.0-1.5) Neut # 4.1 # k/uL # k/uL (1.4-7.7) Lymph # 1.6 # k/uL # k/uL (0.6-4.0) [place] # 0.4 # k/uL # k/uL (0.0-0.9) Eos # 0.4 # k/uL # k/uL (0.0-0.6) Baso # 0.1 # k/uL # k/uL (0.0-0.5) Reactive Lymphs % 1.5 % % (0.0-5.0) Reactive Lymphs # 0.1 # k/uL # k/uL (0.0-0.8) - Radiology Radiology Impressions: Portable chest a History: Shortness of breath Findings: The exam is extremely limited due to morbid obesity. Bilateral basal lower lobe infiltrates or atelectasis may be present. Small pleural effusions cannot be excluded. Heart size is probably normal. Impression: 1. Extremely limited exam due to portable technique and morbid obesity. 2. Probable bilateral lower lobe infiltrates or atelectasis, new since the December 30, 2016 film. Electronically signed on Mar 01, 2017 10:23:43 PM CDT by: Vargas Hammonds - Orders Orders: ED Orders Category Date Time Status Continuous EKG monitoring Q30M Care 03/01/17 21:35 Active Continuous Pulse Oximetry Q30M Care 03/01/17 21:[address] Saline Lock/IV NOW Care 03/01/17 21:36 Active CHEST 1 VIEW [RAD] Stat Exams 03/01/17 21:35 Taken BLOOD CULTURE Stat Lab 03/01/17 Ordered BNP [NT-proBNP] Stat Lab 03/01/17 22:20 Received CBC/PLATELET/DIFF Stat Lab 03/01/17 22:20 Completed CMP Stat Lab 03/01/17 22:20 Received UA W/MICRO IF INDICATED Stat Lab 03/01/17 21:36 Ordered WOUND CULTURE Stat Lab 03/01/17 Ordered fentaNYL CITRATE/PF [Duragesic] Med 03/01/17 21:36 Discontinued 50 mcg IVP NOW ONE Oxygen Daily Oxygen 03/01/17 21:45 Ordered General Adult Physical Exam - PHYSICAL EXAM GENERAL APPEARANCE: moderate distress EENT: eye inspection normal, VALERY RESPIRATORY: other (BBS deminished in bases, O2 at 3L NC, RR 24-26) CVS: equal pulses, irregularly irregular rhy ABDOMEN: no abdominal bruit, no distension, abnormal bowel sounds (hypoactive), distended BACK: normal inspection SKIN: normal color, other (Wounds noted on bilateral lower extremities with erythema and warmth. Right Lower leg with open wounds on anterior aspect. Left lower leg with multiple open wounds, blisters with purulent drainage present; anterior aspect with open wounds warmth and erythema. ) EXTREMITIES: edema (3+), other (patient c/o bilateral leg pain) NEURO: oriented X3, other (wheelchair bound, no neuro deficit. AAOx3, very poor historian) Discharge Clincal Impression: Bilateral lower leg cellulitis, Weakness, Impaired mobility and ADLs CHF (congestive heart failure) Qualifiers: Congestive heart failure type: combined Congestive heart failure chronicity: acute on chronic Qualified Code(s): I50.43 - Acute on chronic combined systolic (congestive) and diastolic (congestive) heart failure Lower extremity edema Qualifiers: Laterality: bilateral Qualified Code(s): R60.0 - Localized edema Wound of left leg Qualifiers: Encounter type: initial encounter Qualified Code(s): S81.802A - Unspecified open wound, left lower leg, initial encounter Wound of right leg Qualifiers: Encounter type: initial encounter Qualified Code(s): S81.801A - Unspecified open wound, right lower leg, initial encounter Home Medications: Ambulatory Orders Acetaminophen with Codeine [Tylenol with Codeine] 1 tab PO Q6 PRN 11/15/16 Atorvastatin Calcium [Lipitor] 80 mg PO HS 11/15/16 Carvedilol [Coreg] 6.25 mg PO BS 11/15/16 Clopidogrel Bisulfate [Plavix] 75 mg PO QD 11/15/16 Furosemide [Lasix] 40 mg PO DAILY 11/15/16 Gabapentin [Neurontin] 300 mg PO TID 11/15/16 Hum Insulin NPH/Reg Insulin Hm [Novolin 70-30 [place]] 35 unit SQ BID 11/15/16 Ipratropium/Albuterol Sulfate [Duoneb] 1 puff IH QID 11/15/16 Isosorbide Mononitrate [Imdur] 30 mg PO DAILY 11/15/16 Nitroglycerin [Nitroquick] 0.4 mg SL Q5M PRN 11/15/16 Potassium Chloride [Klor-Con M20] 20 meq PO DAILY 11/15/16 Umeclidinium [place] [Incruse Ellipta] 62.5 mcg IH D 11/15/16 Warfarin Sodium [Coumadin] 7.5 mg PO 18 11/15/16 Condition: Poor Disposition: 02 XFER SHT-TRM HOSP Decision to Admit: NO Decision Time: 23:42
[2017-03-01 22:38] LABS: eGFR (African) > 60; eGFR (Non-African) > 60
--- NOTE | 2017-03-01 22:47 | Diagnostic Imaging Report ---
DOMINGO BANKS (SPORTS EQUIPMENT RACKER) - ER~ [facility] [address] [facility].[address] [address] ~ ~ ~ ~ Report Submission Date: Mar 01, 2017 10:23:43 PM CDT Patient ~ Study Name: DEUCE BROOKS ~ Date: Mar 01, 2017 10:04:46 PM CDT ~ Modality Type: CR Gender: M ~ Description: CHEST : 49 ~ Institution: [facility] Physician: DOMINGO BANKS) - ER ~ ~ ~ ~ Portable chest a History: Shortness of breath Findings: The exam is extremely limited due to morbid obesity. Bilateral basal lower lobe infiltrates or atelectasis may be present. Small pleural effusions cannot be excluded. Heart size is probably normal. Impression: 1. Extremely limited exam due to portable technique and morbid obesity. 2. Probable bilateral lower lobe infiltrates or atelectasis, new since the December 30, 2016 film. ~ Electronically signed on Mar 01, 2017 10:23:43 PM CDT by: Vargas BEE
[2017-03-01] MEDS ORDERED: FUROSEMIDE 40 MG/4 ML VIAL IVP ONE (23:22)
[2017-03-02 00:35] VITALS: BP 119/40
[2017-03-02 05:42] LABS: APPEARANCE,URINE CLEAR (CLEAR); COLOR,URINE YELLOW (YELLOW); OCCULT BLOOD,URINE 2+ (NEGATIVE); PH URINE 6.5 (5.0 - 8.0)
== END 2017-03-02 00:36 | disposition short-term general hospital (02) ==
LOC: ED 20:21
DX: L03.116 Cellulitis of left lower limb (principal); L03.115 Cellulitis of right lower limb; I50.9 Heart failure, unspecified; R60.0 Localized edema
CPT/HCPCS: 36415; 51702; 71010; 80053; 81002; 83880; 85025; 87040; 87070; 96374; 99283; 99284; J1940; J3010; S1016

== ENCOUNTER 2017-04-13 09:07 | Emergency (ER) | payer MEDICARE, OTHER ==
[2017-04-13] MEDS ORDERED: SILVER SULFADIAZINE 20GM TUBE TP ONE (09:35)
--- NOTE | 2017-04-13 09:38 | ED Physician Documentation ---
Lower Extremity Problem - HPI Stated Complaint: blisters bilateral lower extremities Chief Complaint: Lower Extremity Problem Additional Information: peripheral edema, with skin breakdown, and weeping. He takes lasix, and has been told to wrap them, but he gave away his roberto wraps. He states he can't use compression stockings. he voids 9-10 times a night. Location of Injury: R foot, R ankle, R leg, L foot, L ankle, L leg Onset: days ago Timing: still present Duration: constant Recent Injury: No Where: home Severity: mild Quality: swelling, tenderness Exacerbated By: nothing Relieved By: nothing Associated Symptoms: denies: chest pain, shortness of breath Further Comments: no - ROS CONST: no problems MS/SKIN/LYMPH: none, leg swelling, ankle swelling CVS/RESP: none GI/: none EYES/ENT: none NERUO/PSYCH: difficulty walking. denies: headache - PAST HX Past History: none PE Risk Factors: hypertension, leg swelling Other History: cardiac disease, hypertension, diabetes Type 1 Surgeries/Procedures: none Immunizations: UTD Allergies/Adverse Reactions: Allergies Allergy/AdvReac Type Severity Reaction Status Date / Time Penicillins Allergy Intermediate Rash Verified 04/13/17 09:25 Home Medications: Ambulatory Orders Medication Instructions Recorded Acetaminophen with Codeine 1 tab PO Q6 PRN 11/15/16 [Tylenol with Codeine] Atorvastatin Calcium [Lipitor] 80 mg PO HS 11/15/16 Carvedilol [Coreg] 6.25 mg PO BS 11/15/16 Clopidogrel Bisulfate [Plavix] 75 mg PO QD 11/15/16 Furosemide [Lasix] 40 mg PO DAILY 11/15/16 Gabapentin [Neurontin] 300 mg PO TID 11/15/16 Hum Insulin NPH/Reg Insulin Hm 35 unit SQ BID 11/15/16 [Novolin 70-30 [place]] Ipratropium/Albuterol Sulfate 1 puff IH QID 11/15/16 [Duoneb] Isosorbide Mononitrate [Imdur] 30 mg PO DAILY 11/15/16 Nitroglycerin [Nitroquick] 0.4 mg SL Q5M PRN 11/15/16 Potassium Chloride [Klor-Con M20] 20 meq PO DAILY 11/15/16 Umeclidinium [place] [Incruse 62.5 mcg IH D 11/15/16 Ellipta] Warfarin Sodium [Coumadin] 7.5 mg PO 18 11/15/16 - SOCIAL HX Smoking History: non-smoker Alcohol Use: none Drug Use: none - FAMILY HX Family History: none - VITAL SIGNS Vital Signs: Vital Signs Temp Pulse Resp BP Pulse Ox 98 F 90 24 124/60 4 L 04/13/17 09:19 04/13/17 09:19 04/13/17 09:19 04/13/17 09:19 04/13/17 09:19 - REVIEWED ASSESSMENTS Nursing Assessment Reviewed: Yes Vitals Reviewed: Yes ED Results Lab/Radiology - Orders Orders: ED Orders Category Date Time Status Roberto Wrap to Bilateral Lower Ex 1T Care 04/13/17 09:35 Ordered Silver Sulfadiazine 20Gm [Thermazene] Med 04/13/17 09:35 Once 1 appl TP NOW ONE Lower Extremity Problem - EXAM General Appearance: no distress Hips: bilateral hip: non-tender Legs: bilateral: non-tender Knees: bilateral: non-tender Ankle: bilateral: swelling Foot: bilateral foot: swelling Neuro/Tendon: normal sensation, normal motor functions EENT: ENT inspection normal, no signs of dehydration RESPIRATORY: no resp distress, chest non-tender, breath sounds normal CVS: reg rate & rhythm JOINT: joints nml VASCULAR: no vascular compromise, pulses full/equal NEURO/PSYCH: oriented X3 SKIN: other ( hyperemic, with weeping skin breaks, bulla, clear liquid, no odor. ) BACK: normal inspection Discharge Clincal Impression: Peripheral edema, Cellulitis of leg, left, Cellulitis of leg, right, Skin bulla , Noncompliance w/medication treatment due to intermit use of medication, Pedal edema Morbid obesity Qualifiers: Obesity type: unspecified obesity type Qualified Code(s): E66.01 - Morbid ( severe) obesity due to excess calories Referrals: Charan Palma [Primary Care Provider] - 2 Days Home Medications: Ambulatory Orders Acetaminophen with Codeine [Tylenol with Codeine] 1 tab PO Q6 PRN 11/15/16 Atorvastatin Calcium [Lipitor] 80 mg PO HS 11/15/16 Carvedilol [Coreg] 6.25 mg PO BS 11/15/16 Clopidogrel Bisulfate [Plavix] 75 mg PO QD 11/15/16 Furosemide [Lasix] 40 mg PO DAILY 11/15/16 Gabapentin [Neurontin] 300 mg PO TID 11/15/16 Hum Insulin NPH/Reg Insulin Hm [Novolin 70-30 [place]] 35 unit SQ BID 11/15/16 Ipratropium/Albuterol Sulfate [Duoneb] 1 puff IH QID 11/15/16 Isosorbide Mononitrate [Imdur] 30 mg PO DAILY 11/15/16 Nitroglycerin [Nitroquick] 0.4 mg SL Q5M PRN 11/15/16 Potassium Chloride [Klor-Con M20] 20 meq PO DAILY 11/15/16 Umeclidinium [place] [Incruse Ellipta] 62.5 mcg IH D 11/15/16 Warfarin Sodium [Coumadin] 7.5 mg PO 18 11/15/16 Condition: Stable Disposition: 01 HOME, SELF-CARE Decision to Admit: NO Date of Decison to Admit: 04/13/17 Decision Time: 09:45
[2017-04-13 10:06] VITALS: BP 120/58
== END 2017-04-13 10:04 | disposition home or self-care (01) ==
LOC: ED 09:07
DX: R60.0 Localized edema (principal); L03.116 Cellulitis of left lower limb; L03.115 Cellulitis of right lower limb; R23.8 Other skin changes; Z91.128 Patient's intentional underdosing of medication regimen for other reason; E66.01 Morbid (severe) obesity due to excess calories
CPT/HCPCS: 99283

== ENCOUNTER 2017-04-28 20:10 | Emergency (ER) | payer MEDICARE, OTHER ==
[2017-04-28] MEDS: FUROSEMIDE 40 MG/4 ML VIAL IVP ONE (21:10)
[2017-04-28 21:30] LABS: EOSINOPHILS % 7.4 % (0.0-6.8); MEAN CORPUSCULAR HEMOGLOBIN 31.6 pg (28.0-34.0); MEAN CORPUSCULAR VOLUME 100.6 fl (80.0-100.0); MONOCYTES % 8.3 % (0.0-11.0); NEUTROPHILS # 3.8 # k/uL (1.4-7.7)
[2017-04-28 21:46] LABS: eGFR (African) > 60; eGFR (Non-African) > 60
[2017-04-28] MEDS: HYDROmorphone HCL/PF 1 MG/ML DISP.SYRIN IVP ONE (22:07)
[2017-04-28 23:01] VITALS: BP 136/57
--- NOTE | 2017-04-28 23:03 | ED Physician Documentation ---
General Adult - HISTORIAN Historian: patient - HPI Stated Complaint: leg pain, swelling Chief Complaint: General Adult Onset: days ago Timing: still present Severity: moderate Further Comments: yes (Pt is a 67 yo male with mult chronic medical issues, including diabetes, LE edema, CAD, CHF, Afib. Pt is here tonight with c/o b/l leg swelling and pain. Pt is on lasix with recent increase in dose to 40 mg po bid.) - ROS CONST: no problems EYES/ENT: none CVS/RESP: shortness of breath (chronic sob on home O2) GI/: none MS/SKIN/LYMPH: leg swelling (b/l LE edema) - PAST HX Past History: other (Afib, CAD, CHF, HTN, PR, HLD, COPD, CVA, DM, Obesity, R nephrectomy) Allergies/Adverse Reactions: Allergies Allergy/AdvReac Type Severity Reaction Status Date / Time Penicillins Allergy Intermediate Rash Verified 04/13/17 09:25 Home Medications: Ambulatory Orders Medication Instructions Recorded Acetaminophen with Codeine 1 tab PO Q6 PRN 11/15/16 [Tylenol with Codeine] Atorvastatin Calcium [Lipitor] 80 mg PO HS 11/15/16 Clopidogrel Bisulfate [Plavix] 75 mg PO QD 11/15/16 Gabapentin [Neurontin] 300 mg PO TID 11/15/16 Hum Insulin NPH/Reg Insulin Hm 35 unit SQ BID 11/15/16 [Novolin 70-30 [place]] Ipratropium/Albuterol Sulfate 1 puff IH QID 11/15/16 [Duoneb] Isosorbide Mononitrate [Imdur] 30 mg PO DAILY 11/15/16 Nitroglycerin [Nitroquick] 0.4 mg SL Q5M PRN 11/15/16 Potassium Chloride [Klor-Con M20] 20 meq PO DAILY 11/15/16 Umeclidinium [place] [Incruse 62.5 mcg IH D 11/15/16 Ellipta] Warfarin Sodium [Coumadin] 7.5 mg PO 18 11/15/16 Carvedilol [Coreg] 6.25 mg PO BS 04/28/17 Furosemide [Lasix] 20 mg PO TID 04/28/17 - SOCIAL HX Smoking History: non-smoker - FAMILY HX Family History: Yes (Mother: Cancer, DM, ; Father: CAD, DM, ) - VITAL SIGNS Vital Signs: Vital Signs Temp Pulse Resp BP Pulse Ox 120/58 04/13/17 10:04 - REVIEWED ASSESSMENTS Nursing Assessment Reviewed: Yes Vitals Reviewed: Yes Progress - Progress Progress: Lasix 40 mg IV Dilaudid 1 mg IV Leg pain improved. Pt did not wish to stay in the hospital. Will f/u with pcp. General Adult Physical Exam - PHYSICAL EXAM GENERAL APPEARANCE: mild distress EENT: pharynx normal NECK: normal inspection, supple RESPIRATORY: no resp distress, chest non-tender, wheezes CVS: reg rate & rhythm, heart sounds normal ABDOMEN: soft, no organomegaly, normal bowel sounds BACK: normal inspection SKIN: other (b/l LE edema, with several ulcerations, weeping) EXTREMITIES: edema (2+, chronic), tenderness NEURO: oriented X3, motor nml Discharge Clincal Impression: Hyperglycemia, b/l LE edema Referrals: Charan Palma [Primary Care Provider] - 2 Days Home Medications: Ambulatory Orders Acetaminophen with Codeine [Tylenol with Codeine] 1 tab PO Q6 PRN 11/15/16 Atorvastatin Calcium [Lipitor] 80 mg PO HS 11/15/16 Clopidogrel Bisulfate [Plavix] 75 mg PO QD 11/15/16 Gabapentin [Neurontin] 300 mg PO TID 11/15/16 Hum Insulin NPH/Reg Insulin Hm [Novolin 70-30 [place]] 35 unit SQ BID 11/15/16 Ipratropium/Albuterol Sulfate [Duoneb] 1 puff IH QID 11/15/16 Isosorbide Mononitrate [Imdur] 30 mg PO DAILY 11/15/16 Nitroglycerin [Nitroquick] 0.4 mg SL Q5M PRN 11/15/16 Potassium Chloride [Klor-Con M20] 20 meq PO DAILY 11/15/16 Umeclidinium [place] [Incruse Ellipta] 62.5 mcg IH D 11/15/16 Warfarin Sodium [Coumadin] 7.5 mg PO 18 11/15/16 Carvedilol [Coreg] 6.25 mg PO BS 04/28/17 Furosemide [Lasix] 20 mg PO TID 04/28/17 Condition: Stable Disposition: 01 HOME, SELF-CARE Decision to Admit: NO Decision Time: 22:13
== END 2017-04-28 22:20 | disposition home or self-care (01) ==
LOC: ED 20:10
DX: R73.9 Hyperglycemia, unspecified (principal)
CPT/HCPCS: 80053; 83880; 85025; J1170; J1940; 96374; 96375; 99283; S1016

== ENCOUNTER 2017-05-05 12:18 | Emergency (ER) | payer MEDICARE, OTHER ==
[2017-05-05 12:35] VITALS: BP 128/67
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
== END 2017-05-05 13:06 | disposition short-term general hospital (02) ==
LOC: ED 12:18
DX: S39.94XA Unspecified injury of external genitals, initial encounter (principal); X58.XXXA Exposure to other specified factors, initial encounter; Y93.9 Activity, unspecified; Y99.9 Unspecified external cause status
CPT/HCPCS: 99283

== ENCOUNTER 2017-05-31 22:04 | Emergency (ER) | payer MEDICARE, OTHER ==
[2017-06-01 00:06] VITALS: BP 106/74
--- NOTE | 2017-06-01 06:38 | ED Physician Documentation ---
Dyspnea - HISTORIAN Historian: patient - HPI Stated Complaint: COPD/wants oxygen tubing Chief Complaint: Dyspnea Additional Information: Really feels very well, wishes to be checked out and would like O2 tubing Onset: other (stable) Duration: other (stable) Initiating Event: other (stable) Severity: moderate Exacerbated By: exertion Associated Symptoms: none Further Comments: no - ROS CONST: no problems EYES/ENT: none GI/: none NEURO/PSYCH: denies: headache MS/SKIN/LYMPH: none - PAST HX Lung Disease: COPD Cardiac Disease: other (htn) PE Risk Factors: hypertension Surgeries/Procedures: other (ortho) Other History: diabetes Type 2, hyperlipidemia Immunizations: referred to PCP Allergies/Adverse Reactions: Allergies Allergy/AdvReac Type Severity Reaction Status Date / Time Penicillins Allergy Intermediate Rash Verified 05/31/17 22:21 Home Medications: Ambulatory Orders Medication Instructions Recorded Acetaminophen with Codeine 1 tab PO Q6 PRN 11/15/16 [Tylenol with Codeine] Atorvastatin Calcium [Lipitor] 80 mg PO HS 11/15/16 Clopidogrel Bisulfate [Plavix] 75 mg PO QD 11/15/16 Gabapentin [Neurontin] 300 mg PO TID 11/15/16 Hum Insulin NPH/Reg Insulin Hm 35 unit SQ BID 11/15/16 [Novolin 70-30 [place]] Ipratropium/Albuterol Sulfate 1 puff IH QID 11/15/16 [Duoneb] Isosorbide Mononitrate [Imdur] 30 mg PO DAILY 11/15/16 Nitroglycerin [Nitroquick] 0.4 mg SL Q5M PRN 11/15/16 Potassium Chloride [Klor-Con M20] 20 meq PO DAILY 11/15/16 Umeclidinium [place] [Incruse 62.5 mcg IH D 11/15/16 Ellipta] Warfarin Sodium [Coumadin] 7.5 mg PO 18 11/15/16 Carvedilol [Coreg] 6.25 mg PO BS 04/28/17 Furosemide [Lasix] 20 mg PO TID 04/28/17 - SOCIAL HX Smoking History: non-smoker Alcohol Use: none Drug Use: none - FAMILY HX Family History: no significant history - VITAL SIGNS Vital Signs: Vital Signs Temp Pulse Resp BP Pulse Ox 98.2 F 80 16 106/74 95 05/31/17 23:50 05/31/17 23:50 05/31/17 23:50 05/31/17 23:50 05/31/17 23:50 - REVIEWED ASSESSMENTS Nursing Assessment Reviewed: Yes Vitals Reviewed: Yes Progress - Results/Orders Results/Orders: no testing ordered - Progress Progress: pt. stable entire time in er Critical Care Note - Critical Care Note Total Time (mins): 0 ED Results Lab/Radiology - Lab Results Lab Results: none ordered - Radiology Radiology Impressions: none ordered - Orders Orders: ED Orders Category Date Time Status Oxygen Daily Oxygen 05/31/17 22:15 Ordered Dyspnea Physical Exam - EXAM General Appearance: no acute distress EENT: eye inspection normal, ENT inspection normal, pharynx normal, no signs of dehydration, VALERY Neck: nml inspection Respiratory: no resp. distress, breath sounds nml, no pain on inspiration, speaks full sentences CVS: reg. rate & rhythm Abdomen: non-tender, no organomegaly Skin: color nml, no rash Extremities: non-tender, normal range of motion Neuro/Psych: oriented x3, CN's nml as tested, motor nml Discharge Clincal Impression: COPD (chronic obstructive pulmonary disease) Qualifiers: COPD type: unspecified COPD Qualified Code(s): J44.9 - Chronic obstructive pulmonary disease, unspecified Referrals: Charan Palma [Primary Care Provider] - 2 Days Home Medications: Ambulatory Orders Acetaminophen with Codeine [Tylenol with Codeine] 1 tab PO Q6 PRN 11/15/16 Atorvastatin Calcium [Lipitor] 80 mg PO HS 11/15/16 Clopidogrel Bisulfate [Plavix] 75 mg PO QD 11/15/16 Gabapentin [Neurontin] 300 mg PO TID 11/15/16 Hum Insulin NPH/Reg Insulin Hm [Novolin 70-30 [place]] 35 unit SQ BID 11/15/16 Ipratropium/Albuterol Sulfate [Duoneb] 1 puff IH QID 11/15/16 Isosorbide Mononitrate [Imdur] 30 mg PO DAILY 11/15/16 Nitroglycerin [Nitroquick] 0.4 mg SL Q5M PRN 11/15/16 Potassium Chloride [Klor-Con M20] 20 meq PO DAILY 11/15/16 Umeclidinium [place] [Incruse Ellipta] 62.5 mcg IH D 11/15/16 Warfarin Sodium [Coumadin] 7.5 mg PO 18 11/15/16 Carvedilol [Coreg] 6.25 mg PO BS 04/28/17 Furosemide [Lasix] 20 mg PO TID 04/28/17 Comments: pt. discharged with routine meds Condition: Stable Disposition: 01 HOME, SELF-CARE Decision to Admit: NO Decision Time: 23:50
== END 2017-05-31 23:50 | disposition home or self-care (01) ==
LOC: ED 22:04
DX: J44.9 Chronic obstructive pulmonary disease, unspecified (principal)
CPT/HCPCS: 99283

== ENCOUNTER 2017-06-10 13:43 | Emergency (ER) | payer MEDICARE, OTHER ==
[2017-06-10 14:24] LABS: BASOPHILS % 1.3 (0.0-1.5); EOSINOPHILS % 7.4 % (0.0-6.8); MEAN CORPUSCULAR VOLUME 98.8 fl (80.0-100.0); MONOCYTES % 6.3 % (0.0-11.0); NEUTROPHILS # 4.6 # k/uL (1.4-7.7)
[2017-06-10 14:42] LABS: eGFR (African) > 60; eGFR (Non-African) > 60
--- NOTE | 2017-06-10 14:46 | ED Physician Documentation ---
Male Genitourinary Problems - HISTORIAN Historian: patient - HPI Stated Complaint: swollen testicles Chief Complaint: Male Genitourinary Problems Onset: days ago Duration: continues in ED Further Comments: yes (67 year old male patient brought in by son for evaluation of scrotal edema. Son reports edema more than 2 weeks, had gotten better last week after increasing lasix for 2 days. Now increased pain and redness.) - Associated Symptoms Problems Urinating: discomfort w/ urination Testicular Pain: R testicle, L testicle Testicular Swelling: R testicle, L testicle Penile Pain: No Penile Swelling: No Abdominal Pain: none - Sexual History Sexual History: non-contributory - ROS CONST: recent illness (chronically ill) GI/: denies: nausea, vomiting, abdominal pain, problems urinating, other MS/SKIN/LYMPH: none CVS/RESP: none EYES/ENT: none NEURO/PSYCH: denies: fainting, dizziness, tingling, numbness, anxiety, depression, other - PAST HX Past History: hypertension, diabetes Type 2 Cardiac Disease: CHF, CAD Allergies/Adverse Reactions: Allergies Allergy/AdvReac Type Severity Reaction Status Date / Time Penicillins Allergy Intermediate Rash Verified 06/10/17 13:53 Home Medications: Ambulatory Orders Medication Instructions Recorded Acetaminophen with Codeine 1 tab PO Q6 PRN 11/15/16 [Tylenol with Codeine] Atorvastatin Calcium [Lipitor] 80 mg PO HS 11/15/16 Clopidogrel Bisulfate [Plavix] 75 mg PO QD 11/15/16 Gabapentin [Neurontin] 300 mg PO TID 11/15/16 Hum Insulin NPH/Reg Insulin Hm 35 unit SQ BID 11/15/16 [Novolin 70-30 [place]] Ipratropium/Albuterol Sulfate 1 puff IH QID 11/15/16 [Duoneb] Isosorbide Mononitrate [Imdur] 30 mg PO DAILY 11/15/16 Nitroglycerin [Nitroquick] 0.4 mg SL Q5M PRN 11/15/16 Potassium Chloride [Klor-Con M20] 20 meq PO DAILY 11/15/16 Umeclidinium [place] [Incruse 62.5 mcg IH D 11/15/16 Ellipta] Warfarin Sodium [Coumadin] 7.5 mg PO 18 11/15/16 Carvedilol [Coreg] 6.25 mg PO BS 04/28/17 Furosemide [Lasix] 20 mg PO TID 04/28/17 Levofloxacin [Levaquin] 500 mg PO DAILY #10 tablet 06/10/17 - SOCIAL HX Smoking History: non-smoker - FAMILY HX Family History: none - VITAL SIGNS Vital Signs: Vital Signs Temp Pulse Resp BP Pulse Ox 98.0 F 74 24 130/70 90 L 06/10/17 13:55 06/10/17 14:53 06/10/17 14:53 06/10/17 14:53 06/10/17 14:53 - REVIEWED ASSESSMENTS Nursing Assessment Reviewed: Yes Vitals Reviewed: Yes ED Results Lab/Radiology - Lab Results Lab Results: Lab Results 06/10/17 06/10/17 14:15 14:15 WBC 7.50 K/ul K/ul (4.00-12.00) RBC 4.38 M/ul M/ul (3.90-5.20) Hgb 13.6 g/dL g/dL (12.0-18.0) Hct 43.3 % % (37.0-53.0) MCV 98.8 fl fl (80.0-100.0) MCH 31.0 pg pg (28.0-34.0) MCHC 31.4 g/dL g/dL (30.0-36.0) RDW 13.7 % % (11.3-14.3) Plt Count 223 K/mm3 K/mm3 (130-400) Neut % (Auto) 61.1 % % (39.0-79.0) Lymph % (Auto) 22.7 % % (16.0-50.0) [place] % (Auto) 6.3 % % (0.0-11.0) Eos % (Auto) 7.4 % H % (0.0-6.8) Baso % (Auto) 1.3 (0.0-1.5) Neut # (Auto) 4.6 # k/uL # k/uL (1.4-7.7) Lymph # (Auto) 1.7 # k/uL # k/uL (0.6-4.0) [place] # (Auto) 0.5 # k/uL # k/uL (0.0-0.9) Eos # (Auto) 0.6 # k/uL # k/uL (0.0-0.6) Baso # (Auto) 0.1 # k/uL # k/uL (0.0-0.5) Reactive Lymphs % 1.2 % % (0.0-5.0) Reactive Lymphs # 0.1 # k/uL # k/uL (0.0-0.8) Sodium 135 mmol/L L mmol/L (136-145) Potassium 4.1 mmol/L mmol/L (3.5-5.0) Chloride 93 mmol/L L mmol/L (98-110) Carbon Dioxide 39 mmol/L H mmol/L (20-32) BUN 8 mg/dL L mg/dL (10-26) Creatinine 0.6 mg/dL mg/dL (0.4-1.5) Estimated Creat Clear 218 Est GFR ( Amer) > 60 (60 - ) Est GFR (Non-Af Amer) > 60 (60 - ) Glucose 330 mg/dL H mg/dL (70-99) Calcium 9.1 mg/dL mg/dL (8.5-10.5) Total Bilirubin 0.3 mg/dL mg/dL (0.2-1.2) AST 14 U/L U/L (0-41) ALT 11 U/L U/L (0-45) Alkaline Phosphatase 107 U/L U/L (46-116) Total Protein 5.9 g/dL L g/dL (6.0-8.5) Albumin 3.5 g/dL g/dL (3.0-5.5) - Orders Orders: ED Orders Category Date Time Status CBC/PLATELET/DIFF Stat Lab 06/10/17 14:15 Completed CMP Stat Lab 06/10/17 14:15 Completed Male Genitourinary Problems - EXAM General Appearance: mild distress, other (very poor personal hygiene) Genitals: testicular tenderness (bilateral), scrotal swelling, other (bilateral scrotal erythema) EENT: eye inspection normal, VALERY Respiratory: no resp distress, chest non-tender, breath sounds normal CVS: reg rate & rhythm, heart sounds normal, equal pulses, no gallop, PMI nml, no JVD, no friction rub, murmur (mitral regurg) Extremities: normal range of motion, non-tender, normal inspection, no calf tenderness, normal capillary refill, pelvis stable, swelling (3+ lower legs, ankles; weeping) Neuro/Psych: oriented X3, mood/affect nml Skin: warm/dry, pallor Discharge Clincal Impression: Epididymitis, Scrotal edema Prescriptions: Levofloxacin [Levaquin] 500 mg PO DAILY #10 tablet Referrals: Charan Palma [Primary Care Provider] - 2 Days Additional Instructions: Follow up with primary care next week or sooner if your symptoms become worse. Continue all medications as prescribed. 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 Home Medications: Ambulatory Orders Acetaminophen with Codeine [Tylenol with Codeine] 1 tab PO Q6 PRN 11/15/16 Atorvastatin Calcium [Lipitor] 80 mg PO HS 11/15/16 Clopidogrel Bisulfate [Plavix] 75 mg PO QD 11/15/16 Gabapentin [Neurontin] 300 mg PO TID 11/15/16 Hum Insulin NPH/Reg Insulin Hm [Novolin 70-30 [place]] 35 unit SQ BID 11/15/16 Ipratropium/Albuterol Sulfate [Duoneb] 1 puff IH QID 11/15/16 Isosorbide Mononitrate [Imdur] 30 mg PO DAILY 11/15/16 Nitroglycerin [Nitroquick] 0.4 mg SL Q5M PRN 11/15/16 Potassium Chloride [Klor-Con M20] 20 meq PO DAILY 11/15/16 Umeclidinium [place] [Incruse Ellipta] 62.5 mcg IH D 11/15/16 Warfarin Sodium [Coumadin] 7.5 mg PO 18 11/15/16 Carvedilol [Coreg] 6.25 mg PO BS 04/28/17 Furosemide [Lasix] 20 mg PO TID 04/28/17 Levofloxacin [Levaquin] 500 mg PO DAILY #10 tablet 06/10/17 Condition: Stable Disposition: 01 HOME, SELF-CARE Decision to Admit: NO Decision Time: 14:46
[2017-06-10 14:55] VITALS: BP 130/70
[2017-06-11 05:58] LABS: APPEARANCE,URINE CLEAR (CLEAR); COLOR,URINE YELLOW (YELLOW); OCCULT BLOOD,URINE 2+ (NEGATIVE); PH URINE 5.5 (5.0 - 8.0); UROBILINOGEN URINE 0.2 Eu (0.2-1.0)
== END 2017-06-10 14:52 | disposition home or self-care (01) ==
LOC: ED 13:43
DX: N45.1 Epididymitis (principal); N50.89 Other specified disorders of the male genital organs
CPT/HCPCS: 36415; 80053; 81002; 85025; 99283

== ENCOUNTER 2017-06-13 20:09 | Emergency (ER) | payer MEDICARE, OTHER ==
[2017-06-13] MEDS ORDERED: IPRATROPIUM/ALBUTEROL SULFATE 3 ML AMPUL.NEB NEB ONE ×2 (20:32→20:33)
[2017-06-13] MEDS ORDERED: methylPREDNISolone SOD SUCC 125 MG/2 ML VIAL IVP ONE (20:33)
[2017-06-13] MEDS ORDERED: ACETAMINOPHEN 1,000 MG/100 ML INJ IV ONE (20:34)
[2017-06-13] MEDS ORDERED: ASPIRIN 325 MG TABLET PO ONE (20:35)
[2017-06-13] MEDS ORDERED: ASPIRIN 325 MG TABLET ONE (20:36)
[2017-06-13] MEDS ORDERED: BUDESONIDE 0.5MG/2ML AMPUL.NEB NEB ONE (20:44)
[2017-06-13] MEDS ORDERED: BUDESONIDE 0.5MG/2ML AMPUL.NEB NEB SCH (21:00)
[2017-06-13 21:04] LABS: BASOPHILS % 1.1 (0.0-1.5); EOSINOPHILS % 6.9 % (0.0-6.8); MEAN CORPUSCULAR HEMOGLOBIN 30.3 pg (28.0-34.0); MEAN CORPUSCULAR VOLUME 99.1 fl (80.0-100.0); MONOCYTES % 7.2 % (0.0-11.0); NEUTROPHILS # 4.8 # k/uL (1.4-7.7)
[2017-06-13 21:12] LABS: eGFR (African) > 60; eGFR (Non-African) > 60
--- NOTE | 2017-06-13 21:15 | Diagnostic Imaging Report ---
KATH GAYLE [facility] [id number] [facility] [address] [address] Report Submission Date: Jun 13, 2017 9:14:14 PM CDT Patient Study Name: DEUCE BROOKS Date: Jun 13, 2017 8:38:58 PM CDT Modality Type: CR Gender: M Description: CHEST : 48 Institution: [facility] Physician: KATH GAYLE Chest, 1 view History: CHEST PAIN Findings: Comparison is made to exam dated 03/01/2017. Examination is limited by patient's large body habitus The heart size is enlarged. There is mild point vascular congestion present with mild basilar atelectasis noted. There is no pleural effusion or pneumothorax identified. The osseous structures are normal. Impression: 1. Cardiomegaly mild pulmonary vascular congestion and basilar atelectasis. Electronically signed on Jun 13, 2017 9:14:14 PM CDT by: Michael BEE
--- NOTE | 2017-06-13 21:42 | ED Physician Documentation ---
Chest Pain - HISTORIAN Historian: patient - HPI Stated Complaint: chest pain Chief Complaint: Chest Pain Additional Information: x 24 hours, sharp, left pectoral, intermittant, radiation to left shoulder, increased with movement, no n/v, no diaphoresis, no soa Onset: days ago (1) Timing: sudden onset Duration: waxing, waning, sudden-onset Last known Well Date: 06/12/17 Last Known Well Time: 12:00 Last known Well Code/Unknown Code: Unknown Context: activity, other Severity: moderate Quality: aching Front/Back of Body, Lg (Color): 1 - pain Chest Pain Radiation: other (left shoulder) Chest Pain Signs/Symptoms: denies: nausea, vomiting, diaphoresis, cool extremities, dizziness, dyspnea, tachypnea, tachycardia, hypotension, palpitations, weakness Worsened By: deep breaths, movement Relieved By: nothing Further Comments: no - ROS CONST: none MS/LYMPH: none GI/: none EYES/ENT: none SKIN/ENDO: none NEURO/PSYCH: none - PAST HX DC risk factors: hypertension, hyperlipidemia DVT/PE Risk Factors: other (not ambulating) Neuro deficit: none GI disease: none Lung disease: COPD Surgeries/Procedures: other (ortho) Immunizations: referred to PCP Allergies/Adverse Reactions: Allergies Allergy/AdvReac Type Severity Reaction Status Date / Time Penicillins Allergy Intermediate Rash Verified 06/13/17 21:04 Home Medications: Ambulatory Orders Medication Instructions Recorded Acetaminophen with Codeine 1 tab PO Q6 PRN 11/15/16 [Tylenol with Codeine] Atorvastatin Calcium [Lipitor] 80 mg PO HS 11/15/16 Clopidogrel Bisulfate [Plavix] 75 mg PO QD 11/15/16 Gabapentin [Neurontin] 300 mg PO TID 11/15/16 Hum Insulin NPH/Reg Insulin Hm 35 unit SQ BID 11/15/16 [Novolin 70-30 [place]] Ipratropium/Albuterol Sulfate 1 puff IH QID 11/15/16 [Duoneb] Isosorbide Mononitrate [Imdur] 30 mg PO DAILY 11/15/16 Nitroglycerin [Nitroquick] 0.4 mg SL Q5M PRN 11/15/16 Potassium Chloride [Klor-Con M20] 20 meq PO DAILY 11/15/16 Umeclidinium [place] [Incruse 62.5 mcg IH D 11/15/16 Ellipta] Warfarin Sodium [Coumadin] 7.5 mg PO 18 11/15/16 Carvedilol [Coreg] 6.25 mg PO BS 04/28/17 Furosemide [Lasix] 20 mg PO TID 04/28/17 - SOCIAL HX Smoking History: non-smoker Alcohol Use: none Drug Use: none - FAMILY HX Family HX: none - VITAL SIGNS Vital Signs: Vital Signs Temp Pulse Resp BP Pulse Ox 98.4 F 80 24 156/78 88 L 06/13/17 20:15 06/13/17 20:15 06/13/17 20:15 06/13/17 20:15 06/13/17 20:15 - REVIEWED ASSESSMENTS Nursing Assessment Reviewed: Yes Vitals Reviewed: Yes Progress - Results/Orders Results/Orders: cbc, cmp, ua, trop, bnp, cxr, ekg ordered - Progress Progress: Pt. given Ofirmev 1 gram ivpb, duoneb tx, pulmicort tx (05.) and 125 mg solu medrol ivp in er with significant improvement in symptoms, pain free by time of discharge. Critical Care Note - Critical Care Note Total Time (mins): 0 ED Results Lab/Radiology - Lab Results Lab Results: Lab Results 06/13/17 06/13/17 06/13/17 20:54 20:54 20:54 WBC 7.70 K/ul K/ul (4.00-12.00) RBC 4.73 M/ul M/ul (3.90-5.20) Hgb 14.4 g/dL g/dL (12.0-18.0) Hct 46.9 % % (37.0-53.0) MCV 99.1 fl fl (80.0-100.0) MCH 30.3 pg pg (28.0-34.0) MCHC 30.6 g/dL g/dL (30.0-36.0) RDW 13.8 % % (11.3-14.3) Plt Count 246 K/mm3 K/mm3 (130-400) Neut % (Auto) 62.0 % % (39.0-79.0) Lymph % (Auto) 21.7 % % (16.0-50.0) [place] % (Auto) 7.2 % % (0.0-11.0) Eos % (Auto) 6.9 % H % (0.0-6.8) Baso % (Auto) 1.1 (0.0-1.5) Neut # (Auto) 4.8 # k/uL # k/uL (1.4-7.7) Lymph # (Auto) 1.7 # k/uL # k/uL (0.6-4.0) [place] # (Auto) 0.6 # k/uL # k/uL (0.0-0.9) Eos # (Auto) 0.5 # k/uL # k/uL (0.0-0.6) Baso # (Auto) 0.1 # k/uL # k/uL (0.0-0.5) Reactive Lymphs % 1.1 % % (0.0-5.0) Reactive Lymphs # 0.1 # k/uL # k/uL (0.0-0.8) Sodium 136 mmol/L mmol/L (136-145) Potassium 4.5 mmol/L mmol/L (3.5-5.0) Chloride 92 mmol/L L mmol/L (98-110) Carbon Dioxide 41 mmol/L H mmol/L (20-32) BUN 9 mg/dL L mg/dL (10-26) Creatinine 0.9 mg/dL mg/dL (0.4-1.5) Est GFR ( Amer) > 60 (60 - ) Est GFR (Non-Af Amer) > 60 (60 - ) Glucose 268 mg/dL H mg/dL (70-99) Calcium 9.8 mg/dL mg/dL (8.5-10.5) Total Bilirubin 0.3 mg/dL mg/dL (0.2-1.2) AST 19 U/L U/L (0-41) ALT 12 U/L U/L (0-45) Alkaline Phosphatase 112 U/L U/L (46-116) Troponin I < 0.03 ng/mL L ng/mL (0.03-0.06) NT-Pro-B Natriuret Pep 3094.0 pg/mL H pg/mL (15.0-125.0) Total Protein 6.7 g/dL g/dL (6.0-8.5) Albumin 3.8 g/dL g/dL (3.0-5.5) - Radiology Radiology Impressions: cxr shows mild vascular prominence, no overt chf or effusion - Orders Orders: ED Orders Category Date Time Status Place IV Lock 1T Care 06/13/17 20:28 Active CHEST 1 VIEW [RAD] Routine Exams 06/13/17 Completed CBC/PLATELET/DIFF Routine Lab 06/13/17 20:54 Completed CMP Routine Lab 06/13/17 20:54 Completed NT-proBNP Routine Lab 06/13/17 20:54 Completed TROPONIN I (cTnI) Routine Lab 06/13/17 20:54 Completed URINALYSIS Routine Lab 06/13/17 Ordered Acetaminophen [Ofirmev] Med 06/13/17 20:34 Discontinued 1,000 mg IV NOW ONE Aspirin Med 06/13/17 20:36 Discontinued 325 mg .ROUTE .STK-MED ONE Aspirin Med 06/13/17 20:35 Discontinued 325 mg PO NOW ONE Budesonide [Pulmicort] Med 06/13/17 21:00 Ordered 0.5 mg NEB BID Ipratropium/Albuterol Sulfate [Duoneb] Med 06/13/17 20:32 Discontinued 3 ml NEB .STK-MED ONE Ipratropium/Albuterol Sulfate [Duoneb] Med 06/13/17 20:33 Discontinued 3 ml NEB NOW ONE methylPREDNISolone SOD SUCC [Solu-MEDROL] Med 06/13/17 20:33 Discontinued 125 mg IVP NOW ONE Oxygen Daily Oxygen 06/13/17 20:45 Ordered EKG WITH COMPARISON Routine Ther 06/13/17 Ordered Chest Pain Physical Exam - EXAM General Appearance: alert, moderate distress EENT: eye inspection normal, ENT inspection normal, pharynx normal, no signs of dehydration, VALERY, no nystagmus, TM's nml Neck: nml inspection, no carotid bruit, JVD present Respiratory: no resp. distress, manifests distinct pain on movement, left, arm, wheezes (mild, scattered). No: rales, rhonchi CVS: reg. rate & rhythm Abdomen: soft, no organomegaly, normal bowel sounds, non-tender Skin: warm/dry, normal color Extremities: non-tender, edema (chronic for this pt.) Neuro: oriented X3, CN's nml as tested, motor nml, sensation nml, mood/affect nml Discharge Clincal Impression: Chest wall discomfort Referrals: Charan Palma [Primary Care Provider] - 2 Days Home Medications: Ambulatory Orders Acetaminophen with Codeine [Tylenol with Codeine] 1 tab PO Q6 PRN 11/15/16 Atorvastatin Calcium [Lipitor] 80 mg PO HS 11/15/16 Clopidogrel Bisulfate [Plavix] 75 mg PO QD 11/15/16 Gabapentin [Neurontin] 300 mg PO TID 11/15/16 Hum Insulin NPH/Reg Insulin Hm [Novolin 70-30 [place]] 35 unit SQ BID 11/15/16 Ipratropium/Albuterol Sulfate [Duoneb] 1 puff IH QID 11/15/16 Isosorbide Mononitrate [Imdur] 30 mg PO DAILY 11/15/16 Nitroglycerin [Nitroquick] 0.4 mg SL Q5M PRN 11/15/16 Potassium Chloride [Klor-Con M20] 20 meq PO DAILY 11/15/16 Umeclidinium [place] [Incruse Ellipta] 62.5 mcg IH D 11/15/16 Warfarin Sodium [Coumadin] 7.5 mg PO 18 11/15/16 Carvedilol [Coreg] 6.25 mg PO BS 04/28/17 Furosemide [Lasix] 20 mg PO TID 04/28/17 Comments: discharged home in stable and improved condition with steroid taper, recommendation to take his duoneb treatments q 4 hours and follow up with primary care provider. Condition: Stable Disposition: 01 HOME, SELF-CARE Decision to Admit: NO Decision Time: 22:40
[2017-06-13 23:02] VITALS: BP 133/73
== END 2017-06-13 22:45 | disposition home or self-care (01) ==
LOC: ED 20:09
DX: R07.89 Other chest pain (principal)
CPT/HCPCS: 71010; 80053; 83880; 84484; 85025; A9270; J2930; J7626; 96374; 96375; 99283; S1016

== ENCOUNTER 2017-07-06 11:10 | Emergency (ER) | payer MEDICARE, OTHER ==
--- NOTE | 2017-07-06 11:40 | ED Physician Documentation ---
General Adult - HISTORIAN Historian: patient - HPI Chief Complaint: General Adult Onset: hours (noticed this AM) Timing: still present Severity: mild Further Comments: yes (Patient is a poor historian and person with him is not sure of his medical problems. Patient states that he awoke wthis AM ecchymosis tothe lower right and left chest wall area and left axilla area. Patient denies any trauma to the chest wall. Has not fallen. Patietn states that yesterday he did try to pull himself up in a wheelchair and several occasions and felt a pop in the left anterior chest wall area. No swelling noted at that time.) - ROS CONST: denies: fever, chills CVS/RESP: shortness of breath GI/: denies: abdominal pain, vomiting, nausea, diarrhea - PAST HX Past History: COPD, CHF, other (chronic pedal edema, atrial fib on anticoagulation therapy, ) Other History: diabetes Type 2 Surgeries/Procedures: other (stinting to arteries in the LE) Immunizations: referred to PCP Allergies/Adverse Reactions: Allergies Allergy/AdvReac Type Severity Reaction Status Date / Time Penicillins Allergy Intermediate Rash Verified 07/06/17 12:08 Home Medications: Ambulatory Orders Medication Instructions Recorded Atorvastatin Calcium [Lipitor] 80 mg PO HS 11/15/16 Hum Insulin NPH/Reg Insulin Hm 35 unit SQ BID 11/15/16 [Novolin 70-30 [place]] Ipratropium/Albuterol Sulfate 1 puff IH QID 11/15/16 [Duoneb] Isosorbide Mononitrate [Imdur] 30 mg PO DAILY 11/15/16 Nitroglycerin [Nitroquick] 0.4 mg SL Q5M PRN 11/15/16 Potassium Chloride [Klor-Con M20] 20 meq PO DAILY 11/15/16 Umeclidinium [place] [Incruse 62.5 mcg IH D 11/15/16 Ellipta] Furosemide [Lasix] 20 mg PO TID 04/28/17 Warfarin Sodium [Coumadin] 5 mg PO DAILY 07/06/17 - SOCIAL HX Smoking History: non-smoker Alcohol Use: none Drug Use: none - FAMILY HX Family History: No - VITAL SIGNS Vital Signs: Vital Signs Temp Pulse Resp BP Pulse Ox 98.2 F 79 28 H 131/67 93 07/06/17 11:36 07/06/17 11:36 07/06/17 11:36 07/06/17 11:36 07/06/17 11:36 - REVIEWED ASSESSMENTS Nursing Assessment Reviewed: Yes Vitals Reviewed: Yes Progress - Progress Progress: When son who is his companion caregiver came in states that his mental status is at baseline. He is not able to stand or amubalte. Family does not know of any recent trauma, but he just returned to the home yesterday, another family member has been caring for him . Last INR was on the Jul and was 1.8 ED Results Lab/Radiology - Orders Orders: ED Orders Category Date Time Status CHEST P.A.&LAT 2 VIEWS [RAD] Routine Exams 07/06/[address] BRAIN W/O CONTRAST Stat Exams 07/06/17 Ordered BNP [NT-proBNP] Routine Lab 07/06/17 Ordered CBC/PLATELET/DIFF Routine Lab 07/06/17 Ordered CMP Routine Lab 07/06/17 Ordered PT-INR Routine Lab 07/06/17 Ordered General Adult Physical Exam - PHYSICAL EXAM GENERAL APPEARANCE: mild distress EENT: ENT inspection normal NECK: normal inspection, thyroid normal, supple. No: stiff neck RESPIRATORY: no resp distress, other (patient complains of purititic chest pain. Tenderness to palpation over the area of ecchymosis, no point rib tenderness noted. ). No: chest non-tender (patient complains of some tenderness to palpation over the anterior chest pain bialterally. ), breath sounds normal, wheezes, rales CVS: irregularly irregular rhy ABDOMEN: soft, no organomegaly, normal bowel sounds, no abdominal bruit SKIN: warm/dry, other (ecchymosis to the anterior chest wall area and left axilla area. ) NEURO: oriented X3, CN's nml as tested, motor nml Discharge Clincal Impression: Superficial bruising of chest wall Referrals: Charan Palma [Primary Care Provider] - 2 Days Additional Instructions: Continue with present medications, follow-up with your primary care provider as scheduled. If you have any further problems to return to the ED. Home Medications: Ambulatory Orders Atorvastatin Calcium [Lipitor] 80 mg PO HS 11/15/16 Hum Insulin NPH/Reg Insulin Hm [Novolin 70-30 [place]] 35 unit SQ BID 11/15/16 Ipratropium/Albuterol Sulfate [Duoneb] 1 puff IH QID 11/15/16 Isosorbide Mononitrate [Imdur] 30 mg PO DAILY 11/15/16 Nitroglycerin [Nitroquick] 0.4 mg SL Q5M PRN 11/15/16 Potassium Chloride [Klor-Con M20] 20 meq PO DAILY 11/15/16 Umeclidinium [place] [Incruse Ellipta] 62.5 mcg IH D 11/15/16 Furosemide [Lasix] 20 mg PO TID 04/28/17 Warfarin Sodium [Coumadin] 5 mg PO DAILY 07/06/17 Condition: Stable Disposition: 01 HOME, SELF-CARE Decision to Admit: NO Date of Decison to Admit: 07/06/17 Decision Time: 12:33
[2017-07-06 12:03] LABS: eGFR (African) > 60; eGFR (Non-African) > 60
[2017-07-06 12:21] LABS: BASOPHILS % 0.7 (0.0-1.5); EOSINOPHILS % 3.5 % (0.0-6.8); MEAN CORPUSCULAR HEMOGLOBIN 30.4 pg (28.0-34.0); MEAN CORPUSCULAR VOLUME 102.3 fl (80.0-100.0); MONOCYTES % 4.6 % (0.0-11.0); NEUTROPHILS # 8.3 # k/uL (1.4-7.7)
[2017-07-06 12:47] VITALS: BP 134/74
--- NOTE | 2017-07-06 22:04 | Diagnostic Imaging Report ---
JOSEFA BENZ [facility] [address] [facility] [address] [address] Report Submission Date: Jul 06, 2017 12:18:44 PM CDT Patient Study Name: DEUCE BROOKS Date: Jul 06, 2017 11:59:40 AM CDT Modality Type: CR Gender: M Description: CHEST : 48 Institution: [facility] Physician: JOSEFA BENZ Chest , 1 view History: DYSPNEA Findings: Examination is limited by patient body habitus. The heart is enlarged. Mild pulmonary vascular congestion is likely present. Pleural effusions may be present however evaluation of the lower lung martino is severely limited by patient's body habitus. Impression: 1. Limited examination due to patient body habitus. Cardiomegaly with likely mild pulmonary vascular congestion present, similar appearance to exam dated Electronically signed on Jul 06, 2017 12:18:44 PM CDT by: Michael BEE
== END 2017-07-06 12:45 | disposition home or self-care (01) ==
LOC: ED 11:10
DX: S20.219A Contusion of unspecified front wall of thorax, initial encounter (principal); X58.XXXA Exposure to other specified factors, initial encounter; Y93.9 Activity, unspecified; Y99.9 Unspecified external cause status
CPT/HCPCS: 71010; 80053; 83880; 85025; 85610; 99283; S1016

== ENCOUNTER 2017-07-16 12:35 | Outpatient (CLI) | payer MEDICARE, OTHER | END 2017-07-16 13:58 | LOC: CARD 12:35 | PROVIDERS: ATTEND Internal Medicine Cardiovascular Disease | DX: I25.10 Atherosclerotic heart disease of native coronary artery without angina pectoris (principal); I35.0 Nonrheumatic aortic (valve) stenosis; I48.91 Unspecified atrial fibrillation; I73.9 Peripheral vascular disease, unspecified; I10 Essential (primary) hypertension; E78.5 Hyperlipidemia, unspecified; E11.9 Type 2 diabetes mellitus without complications; E66.9 Obesity, unspecified; G47.30 Sleep apnea, unspecified; J44.9 Chronic obstructive pulmonary disease, unspecified | CPT/HCPCS: G0463 ==

== ENCOUNTER 2017-08-21 18:26 | Emergency (ER) | payer MEDICARE, OTHER ==
[2017-08-21 19:17] LABS: BASOPHILS % 1.1 (0.0-1.5); EOSINOPHILS % 8.3 % (0.0-6.8); MEAN CORPUSCULAR HEMOGLOBIN 29.8 pg (28.0-34.0); MEAN CORPUSCULAR VOLUME 93.1 fl (80.0-100.0); MONOCYTES % 6.6 % (0.0-11.0)
--- NOTE | 2017-08-21 19:33 | Diagnostic Imaging Report ---
DOMINGO BANKS ([employer]ENT) - ER [facility] [address] [facility] [address] [place], [place]. [address] Report Submission Date: Aug 21, 2017 7:21:58 PM CDT Patient Study Name: DEUCE BROOKS Date: Aug 21, 2017 7:03:54 PM CDT Modality Type: CR Gender: M Description: CHEST : 48 Institution: [facility] Physician: DOMINGO BANKS ([employer]) - ER Examination: Portable chest History: Chest discomfort Comparison exam: 06 July 2017 Findings: Single view of the chest demonstrates prominent cardiac silhouette. Hazy infiltrate involving the left lung base obscuring the diaphragm. Right hemithorax without gross consolidation or costophrenic margin blunting. Osseous structures are appropriate for age. Impression: Left base effusion/consolidation. Electronically signed on Aug 21, 2017 7:21:58 PM CDT by: Forest BEE
[2017-08-21 19:42] LABS: eGFR (African) > 60; eGFR (Non-African) > 60
[2017-08-21] MEDS ORDERED: SODIUM CHLORIDE 3 ML VIAL.NEB IH ONE (19:50)
[2017-08-21] MEDS: IPRATROPIUM/ALBUTEROL SULFATE 3 ML AMPUL.NEB NEB STA (19:55)
--- NOTE | 2017-08-21 19:57 | ED Physician Documentation ---
General Adult - HISTORIAN Historian: patient, spouse, other (grandchildren) - HPI Stated Complaint: SOA/Chest pain Chief Complaint: General Adult Further Comments: yes (67 year old male patient presents with complaint of left great toe bleeding, cough and edema in legs.) - ROS CONST: weakness EYES/ENT: none CVS/RESP: shortness of breath, cough. denies: chest pain GI/: none MS/SKIN/LYMPH: ankle swelling NEURO/PSYCH: denies: headache, fainting, dizziness, tingling, numbness, difficulty walking, difficulty with speech - PAST HX Past History: hypertension, other (CHF, chronic leg edema, A Fib, ) Other History: diabetes Type 2 Allergies/Adverse Reactions: Allergies Allergy/AdvReac Type Severity Reaction Status Date / Time Penicillins Allergy Intermediate Rash Verified 08/21/17 18:55 Home Medications: Ambulatory Orders Medication Instructions Recorded Atorvastatin Calcium [Lipitor] 80 mg PO HS 11/15/16 Hum Insulin NPH/Reg Insulin Hm 35 unit SQ BID 11/15/16 [Novolin 70-30 [place]] Ipratropium/Albuterol Sulfate 1 puff IH QID 11/15/16 [Duoneb] Isosorbide Mononitrate [Imdur] 30 mg PO DAILY 11/15/16 Nitroglycerin [Nitroquick] 0.4 mg SL Q5M PRN 11/15/16 Potassium Chloride [Klor-Con M20] 20 meq PO DAILY 11/15/16 Umeclidinium [place] [Incruse 62.5 mcg IH D 11/15/16 Ellipta] Furosemide [Lasix] 20 mg PO TID 04/28/17 Warfarin Sodium [Coumadin] 5 mg PO DAILY 07/06/17 Aspirin [Ct] 81 mg PO PRN PRN 08/21/17 - SOCIAL HX Smoking History: non-smoker - FAMILY HX Family History: No - VITAL SIGNS Vital Signs: Vital Signs Temp Pulse Resp BP Pulse Ox 77 22 128/60 98 08/21/17 19:30 08/21/17 18:26 08/21/17 18:26 08/21/17 19:30 - REVIEWED ASSESSMENTS Nursing Assessment Reviewed: Yes Vitals Reviewed: Yes Progress - Progress Progress: Compared lab and chest xray to previous records. BNP improved; chest xray improved. Additional lasix IV given in Er, duoneb and tessalon. Bilateral lower legs wrapped with aces. Great toe cleaned. No wound noted. Instructed patient to make appointment with podiatry in [place]. Phone numbers provided. - EKG/XRAY/CT EKG: rhythm (Afib, no changes. ) ED Results Lab/Radiology - Lab Results Lab Results: Lab Results 08/21/17 08/21/17 08/21/17 19:11 19:11 19:11 WBC 9.80 K/ul K/ul (4.00-12.00) RBC 4.05 M/ul M/ul (3.90-5.20) Hgb 12.0 g/dL g/dL (12.0-18.0) Hct 37.7 % % (37.0-53.0) MCV 93.1 fl fl (80.0-100.0) MCH 29.8 pg pg (28.0-34.0) MCHC 32.0 g/dL g/dL (30.0-36.0) RDW 14.3 % % (11.3-14.3) Plt Count 287 K/mm3 K/mm3 (130-400) Neut % (Auto) 60.5 % % (39.0-79.0) Lymph % (Auto) 21.8 % % (16.0-50.0) [place] % (Auto) 6.6 % % (0.0-11.0) Eos % (Auto) 8.3 % H % (0.0-6.8) Baso % (Auto) 1.1 (0.0-1.5) Neut # (Auto) 6.0 # k/uL # k/uL (1.4-7.7) Lymph # (Auto) 2.1 # k/uL # k/uL (0.6-4.0) [place] # (Auto) 0.6 # k/uL # k/uL (0.0-0.9) Eos # (Auto) 0.8 # k/uL H # k/uL (0.0-0.6) Baso # (Auto) 0.1 # k/uL # k/uL (0.0-0.5) Reactive Lymphs % 1.6 % % (0.0-5.0) Reactive Lymphs # 0.2 # k/uL # k/uL (0.0-0.8) Sodium 133 mmol/L L mmol/L (137-145) Potassium 4.2 mmol/L mmol/L (3.5-5.1) Chloride 93 mmol/L L mmol/L (98-107) Carbon Dioxide 34 mmol/L H mmol/L (22-30) BUN 9 mg/dL mg/dL (9-20) Creatinine 0.60 mg/dL L mg/dL (0.66-1.25) Estimated Creat Clear 173 Est GFR ( Amer) > 60 (60 - ) Est GFR (Non-Af Amer) > 60 (60 - ) Glucose 154 mg/dL H mg/dL (74-106) Calcium 8.9 mg/dL mg/dL (8.4-10.2) Total Bilirubin 0.4 mg/dL mg/dL (0.2-1.3) AST 13 U/L L U/L (15-46) ALT 24 U/L U/L (13-69) Alkaline Phosphatase 112 U/L U/L (38-126) NT-Pro-B Natriuret Pep 2728.7 pg/mL H pg/mL (15.0-125.0) Total Protein 6.2 g/dL L g/dL (6.3-8.2) Albumin 3.1 g/dL L g/dL (3.5-5.0) - Orders Orders: ED Orders Category Date Time Status Roberto Wrap to Bilateral Lower Ex 1T Care 08/21/17 19:47 Ordered Cleanse with NS and Chlorhexid 1T Care 08/21/17 18:57 Active Continuous EKG monitoring Q30M Care 08/21/17 18:58 Active Continuous Pulse Oximetry Q30M Care 08/21/17 18:[address] IV Lock 1T Care 08/21/17 18:58 Active CHEST 1 VIEW [RAD] Stat Exams 08/21/17 18:58 Completed BNP [NT-proBNP] Stat Lab 08/21/17 19:11 Completed CBC/PLATELET/DIFF Stat Lab 08/21/17 19:11 Completed CMP Stat Lab 08/21/17 19:11 Completed Benzonatate [Tessalon] Med 08/21/17 19:47 Once 200 mg PO NOW ONE Furosemide [Lasix] Med 09/20/17 19:47 Once 40 mg IVP NOW ONE Ipratropium/Albuterol Sulfate [Duoneb] Med 08/21/17 19:47 Stat 3 ml NEB STAT STA Sodium Chloride For Inhalation [Dey] Med 08/21/17 19:50 Discontinued 3 ml IH .STK-MED ONE General Adult Physical Exam - PHYSICAL EXAM GENERAL APPEARANCE: mild distress EENT: eye inspection normal, ENT inspection normal, pharynx normal, no signs of dehydration, VALERY, no nystagmus, TM's nml RESPIRATORY: no resp distress, chest non-tender, rales (bilateral bases, mild), other (cough) CVS: heart sounds normal, equal pulses, no murmur, no gallop, irregularly irregular rhy ABDOMEN: soft, no organomegaly, normal bowel sounds, no abdominal bruit, no distension, other (morbid obesity) SKIN: warm/dry, pallor, other (Bilateral lower extremities with weeping and 4+ edema) EXTREMITIES: non-tender, normal range of motion, no evidence of injury, no edema , other (left great toe nail with dried blood noted) NEURO: oriented X3, sensation nml, mood/affect nml Discharge Clincal Impression: Lower extremity edema, Cough CHF (congestive heart failure) Qualifiers: Congestive heart failure type: combined Congestive heart failure chronicity: chronic Qualified Code(s): I50.42 - Chronic combined systolic (congestive) and diastolic (congestive) heart failure Abrasion of great toe Qualifiers: Encounter type: initial encounter Laterality: left Qualified Code(s): S90.412A - Abrasion, left great toe, initial encounter Referrals: Charan Palma [Primary Care Provider] - 2 Days Additional Instructions: Keep bilateral extremities wrapped at all times, may remove to shower Call Dr Huang's office to make an appointment to have nails trimmed [phone] [facility] 08/28/2017 See your primary care doctor by Saturday - discuss referral to lymphedema or wound clinic Condition: Fair Disposition: 01 HOME, SELF-CARE Decision to Admit: NO Decision Time: 20:15
[2017-08-21] MEDS: FUROSEMIDE 40 MG/4 ML VIAL IVP ONE (20:10)
[2017-08-21] MEDS: BENZONATATE 100 MG CAPSULE PO ONE (20:20)
[2017-08-21 20:42] VITALS: BP 123/74
== END 2017-08-21 20:30 | disposition home or self-care (01) ==
LOC: ED 18:26
DX: R60.0 Localized edema (principal); R05 Cough; I50.9 Heart failure, unspecified; S90.412A Abrasion, left great toe, initial encounter; X58.XXXA Exposure to other specified factors, initial encounter; Y93.9 Activity, unspecified; Y99.9 Unspecified external cause status
CPT/HCPCS: 71010; 80053; 83880; 85025; A9270; J1940; 96374; 99283; S1016